=== PATIENT | male | born 1950 | race Caucasian/White ===

== ENCOUNTER 2016-12-16 16:15 | Emergency (ER) | payer OTHER ==
[2016-12-16 16:24] VITALS: TEMP 97.7; O2SAT 95
--- NOTE | 2016-12-16 17:03 | EDPHY ---
H & P Stated Complaint: Back spasm last night;"legs not working right" Time Seen by Provider: 12/16/16 16:33 HPI/ROS: CHIEF COMPLAINT: back pain, leg weakness HISTORY OF PRESENT ILLNESS: 66-year-old male presents to the emergency department complaining of back pain and bilateral leg weakness. Patient reports he has been traveling a lot lately and has had knots in his back. Yesterday he got a deep tissue massage switched through his back into a big spasm. Patient went to bed last night, woke up this morning got out of his bed and his legs collapsed. Patient reports he fell to the ground. This has never happened before. He denies any injury from this fall, no head strike, no neck pain. Patient reports he took 10 mg of prednisone that he has to use as needed. He has rheumatoid arthritis. His pain has improved significantly and his weakness in his legs has slowly improved. He still feels like his legs are disconnected from his body when he walks. He reports it has been more difficult to urinate today. No loss of control of bowel or bladder, no saddle anesthesias, no fevers. Patient reports a history of intermittent low back pain over the years, he states he has had a couple steroid injections. REVIEW OF SYSTEMS: A comprehensive 10 point review of systems is otherwise negative aside from elements mentioned in the history of present illness. Source: Patient Exam Limitations: No limitations - Personal History Current Tetanus Diphtheria and Acellular Pertussis (TDAP): Yes Tetanus Vaccine Date: 03/08 - Medical/Surgical History Hx Asthma: Yes Other PMH: RA. degenerative arhtritis - Social History Smoking Status: Never smoked - Physical Exam Exam: Physical Exam Gen: Alert and Oriented, NAD HEENT: PERRL, moist mucous membranes NECK: no meningismus CV: regular rate and regular rhythm PULM: CTAB, no wheezes ABDOMEN: soft, non tender to palpation, BS present BACK: Mild bilateral lumbar and thoracic paraspinal tenderness to palpation, no erythema or obvious deformity, no midline tenderness NEURO: Neurologically grossly intact EXTREMITIES: normal appearing, right total knee arthroscopy scar well healed, full range of motion of bilateral lower legs, 5/5 strength, sensation intact to light touch, 2/4 deep tendon reflexes patellar and Achilles, negative straight leg raise bilaterally SKIN: no rash or break in skin on exposed skin PSYCH: answers questions appropriately. Constitutional: Initial Vital Signs Temperature (C) 36.5 C 12/16/16 16:21 Heart Rate 88 12/16/16 16:21 Respiratory Rate 18 12/16/16 16:21 Blood Pressure 143/84 H 12/16/16 16:21 O2 Sat (%) 95 12/16/16 16:21 O2 Delivery Mode Room Air Allergies/Adverse Reactions: No Known Allergies Allergy (Verified 12/16/16 16:19) Home Medications: Medication Instructions Recorded Aspirin [Aspirin 325 mg (*)] 325 mg PO DAILY 12/16/16 Diclofenac Sodium [Voltaren 50 MG 50 mg PO BID 12/16/16 (*)] Methocarbamol [Robaxin-750] 750 - 1,500 mg PO QID PRN #20 12/16/16 tablet Methotrexate Sodium [Rheumatrex] 2.5 mg PO 12/16/16 Simvastatin [Zocor] 20 mg PO 12/16/16 Valsartan [Diovan (*)] 40 mg PO 12/16/16 Medical Decision Making - Diagnostics Imaging Results: Imaging Impressions Lumbar Spine MRI 12/16/16 16:58 Impression: 1. Multilevel degenerative disk disease with spinal and neural foraminal stenoses as detailed above most prominent at L4-L5. Findings discussed with Merle Olguin NP at 19:43 hour, 12/16/2016. Thoracic Spine MRI 12/16/16 16:58 Impression: 1. Mild scoliosis. 2. Minimal disk bulges without consequences from T7-T8 through T9-T10. 3. Moderate disk bulge at T11-T12 with associated moderate spinal stenosis 4. 12 rib-bearing segments noted along with 6 lumbar spine vertebral body segments ED Course/Re-evaluation: MRI of T and L-spine obtained to rule out cauda equina syndrome. Patient has degenerative disc disease and multiple mild to moderate bulging discs. Patient will be discharged with a prescription for Robaxin. He is given Neurosurgery for follow-up. He is given strict return precautions for any neurovascular compromise. Differential Diagnosis: Diagnosis considered but not limited to cauda equina syndrome, fracture, spinal abscess, muscle spasm - Data Points Medications Given: Discontinued Medications Acetaminophen (Tylenol) 1,000 mg PO EDNOW ONE Stop: 12/16/16 19:17 Last Admin: 12/16/16 19:20 Dose: 1,000 mg Methocarbamol (Robaxin) 750 mg PO EDNOW ONE Stop: 12/16/16 19:56 Last Admin: 12/16/16 20:04 Dose: 750 mg Departure - Departure Disposition: Home, Routine, Self-Care Clinical Impression: Lumbosacral radiculopathy due to degenerative joint disease of spine Condition: Good Instructions: Degenerative Disc Disease (ED) Additional Instructions: Ice or heat whichever feels better, take 600 mg of ibuprofen every 8 hours with food for 3-5 days, take Tylenol as needed on top of this 650 mg every 8 hours. Follow up with the neurosurgeon at 1st available appointment for continued treatment. Return to the emergency department for any loss of control of your bowel or bladder, numbness to your groin, fevers, any new symptoms or concerns. Referrals: Safia Khalil MD [Medical Doctor] - As per Instructions (Neurosurgeon on-call) Prescriptions: Methocarbamol [Robaxin-750] 750 - 1,500 mg PO QID PRN #20 tablet PRN Reason: Spasms
[2016-12-16] MEDS ORDERED: ACETAMINOPHEN 500 MG TAB PO ONE (19:16)
[2016-12-16 19:43] VITALS: BP 148/86; PULSE 68; RESP 16
[2016-12-16] MEDS ORDERED: METHOCARBAMOL 750 MG TAB PO ONE (19:55)
== END 2016-12-16 20:04 | disposition home or self-care (01) ==
DX: M47.27 Other spondylosis with radiculopathy, lumbosacral region (principal); J45.909 Unspecified asthma, uncomplicated; Z79.82 Long term (current) use of aspirin

== ENCOUNTER 2016-12-17 18:01 | Inpatient (IN) | payer OTHER ==
--- NOTE | 2016-12-17 18:37 | EDPHY ---
H & P Stated Complaint: seen yesterday for same/mri's obtained/increasing numbness today HPI/ROS: HPI CHIEF COMPLAINT: Back pain, leg weakness, seen here yesterday HISTORY OF PRESENT ILLNESS: This patient very pleasant 58-year-old male, significant past medical history of rheumatoid arthritis and degenerative joint disease, initially presented yesterday for back pain and leg weakness had a lumbar and thoracic spine MRI that did not show any significant acute cauda equina but did show multilayered degenerative disease as well as spinal stenosis. Went to his primary care doctor's office today with worsening leg weakness and some abdominal numbness. Referred back here to the emergency room for further evaluation. I did spent extensive time with him and his at bedside. Patient complains of inability control his right leg. With weakness. Tells me his leg is weak any drags it. He also appears to have a foot drop. Additionally this patient has noticed over the last 24 hours some numbness to his right abdomen. It is at approximately T12 down. It does not cross midline at the umbilicus. It does wrap around to his back paravertebral Randy. But again does not cross midline. No rash. This was new today. Patient tells me this all started a few days ago after he had a deep tissue massage. Patient initially had some muscle spasms and back pain. He denies headache. Denies upper extremity weakness. Denies visual disturbance. Nausea vomiting or chest pain. Past Medical History: Rheumatoid arthritis Past Surgical History: Right knee surgery, no other recent surgery Social History: Lives locally, denies drugs alcohol tobacco products, his son is a 3rd year neurology resident at the [facility]. I did speak extensively with him over the phone. Family History: Noncontributory ROS REVIEW OF SYSTEMS: A comprehensive 10 point review of systems is otherwise negative aside from elements mentioned in the history of present illness. Exam Constitutional appears well nontoxic, triage nursing summary reviewed, vital signs reviewed, awake/alert. Eyes normal conjunctivae and sclera, EOMI, PERRLA. HENT normal inspection, atraumatic, moist mucus membranes, no epistaxis, neck supple/ no meningismus, no raccoon eyes. Respiratory clear to auscultation bilaterally, normal breath sounds, no respiratory distress, no wheezing. Cardiovascular rate normal, regular rhythm, no murmur, no edema, distal pulses normal. Gastrointestinal soft, non-tender, no rebound, no guarding, normal bowel sounds, no distension, no pulsatile mass. Genitourinary no CVA tenderness. Musculoskeletal no midline vertebral tenderness, full range of motion, no calf swelling, no tenderness of extremities, no meningismus, good pulses, neurovascularly intact. Skin pink, warm, & dry, no rash, skin atraumatic. Neurologic on exam this patient has 2+/3 strength of his right lower extremity. Able to lift a 2 inches off the bed but then it falls. I can easily break his strength with minimal resistance. He also is noted to be weak with dorsiflexion of his right foot. Better with plantar flexion. Left leg is unremarkable great strength. His right leg is warm, good pulse. Sensation intact. Additionally abnormal neurological finding the right side of his abdomen from approximately T11-T12 region down to his groin region and does not cross midline to his umbilicus and goes all the way around to his back patient tells me this is numb. He has sensory difference compared to left side. Otherwise unremarkable neurological exam specifically no other focal weakness. Cranial nerves intact. Good upper extremity strength. No facial asymmetry. No headache. Psychiatric normal mood/affect. Heme/Lymph/Immune no lymphadenopathy. Differential Diagnosis: Includes but is not limited to in a particular order lumbar radiculopathy, peripheral nerve abnormality, transverse myelitis, atypical Guillain-[place], electrolyte disturbance, MS. Medical Decision Making: Plan for this patient MRI with and without contrast of the thoracic and lumbar spine. Check blood work. Consult Neurology. Re-evaluation: 1921: Spoke with Dr. Blaze kerns, Recommends MRI Brain/w/wo.. MRI C Spine, W/wo. Recommends admission. 1943: I spoke with Dr. Tej Tsai nerve surgery he will be glad to see and evaluate the patient. He does agree with MRI brain, cervical spine T-spine and L-spine with without contrast to make sure there is no other lesions. I did go over the patient's exam findings. I did go over his MRI results that he had yesterday. I do feel like his a clinical picture is consistent with severe spinal stenosis on the right side causing his foot drop and leg weakness. Unclear etiology of his numbness of his right abdominal wall. MRI of the brain cervical spine and thoracic spine with and without contrast]. The results of the study are no significant intracranial MRI results, no significant cervical spine except spinal stenosis, however the thoracic spine there is cord edema at the T11 region, not hyperintense, no spinal cord infarct , appears to be chronic. Please see full dictation report from Dr. Hoffman. I discussed the results of this study with the radiologist Dr. Hoffman [id number]: I did discuss this patient's MRI results of his head, cervical spine, thoracic spine with and without contrast with him. I also try to touch base with his son who is a 30 year neuro logical resident at [facility]. Unable to get hold of his son at this time. Patient does agree for plan for admission reason for admission is right leg weakness and pain control. Also reason for neurosurgery and neurology to evaluate him. I do feel that his symptoms are consistent with severe right sided lumbar spinal stenosis causing his right leg weakness and footdrop. He agrees for admission. Dr. Tej Tsai with neurosurgery has already been consult. Dr. Blaze Kerns with Neurology is already been consult. Source: Patient - Personal History Current Tetanus/Diphtheria Vaccine: Yes Tetanus Vaccine Date: 03/08 - Medical/Surgical History Hx Asthma: Yes Hx Chronic Respiratory Disease: No Hx Diabetes: No Hx Cardiac Disease: No Hx Renal Disease: No Hx Cirrhosis: No Hx Alcoholism: No Hx HIV/AIDS: No Hx Splenectomy or Spleen Trauma: No Other PMH: RA. degenerative arhtritis - Social History Smoking Status: Never smoked Constitutional: Initial Vital Signs Temperature (C) 36.9 C 12/17/16 18:06 Heart Rate 85 12/17/16 18:06 Respiratory Rate 20 12/17/16 18:06 Blood Pressure 139/99 H 12/17/16 18:06 O2 Sat (%) 95 12/17/16 18:06 O2 Delivery Mode Room Air Allergies/Adverse Reactions: No Known Allergies Allergy (Verified 12/17/16 18:05) Home Medications: Medication Instructions Recorded Aspirin [Aspirin 325 mg (*)] 325 mg PO DAILY PRN 12/18/16 Diclofenac Sodium [Voltaren-XR] 100 mg PO DAILY 12/18/16 Fluticasone/Salmeterol [Advair 1 puffs PO BID 12/18/16 250-50 Diskus] Hydroxychloroquine Sulfate 200 mg PO DAILY 12/18/16 [Plaquenil 200 mg (*)] Methocarbamol [Robaxin 750 mg (*)] 750 - 1,500 mg PO DAILY PRN 12/18/16 Methotrexate Sodium [Rheumatrex] 2.5 mg PO Q10D 12/18/16 Multivitamins [Multivitamin (*)] 1 each PO DAILY 12/18/16 Simvastatin [Zocor] 20 mg PO HS 12/18/16 Valsartan [Diovan (*)] 80 mg PO HS 12/18/16 Zolpidem Tartrate [Ambien 5MG (*)] 5 mg PO HS PRN 12/18/16 predniSONE [predniSONE] 2.5 mg PO DAILY 12/18/16 Medical Decision Making - Data Points Laboratory Results: Laboratory Results 12/17/16 19:25 12/17/16 19:25 Medications Given: Discontinued Medications Acetaminophen (Tylenol) 1,000 mg PO EDNOW ONE Stop: 12/17/16 20:31 Last Admin: 12/17/16 20:30 Dose: 1,000 mg Hydrocodone Bitart/Acetaminophen (Mills 5/325) 1 - 2 tab PO Q4HRS PRN PRN Reason: Pain, Moderate Able to Take PO Stop: 12/27/16 23:25 Last Admin: 12/19/16 08:46 Dose: 1 tab Cyclobenzaprine HCl (Flexeril) 10 mg PO EDNOW ONE Stop: 12/17/16 22:54 Last Admin: 12/17/16 22:58 Dose: 10 mg Cyclobenzaprine HCl (Flexeril) 10 mg PO TID RUDY Stop: 06/16/17 15:59 Last Admin: 12/19/16 07:18 Dose: 10 mg Cyclobenzaprine HCl (Flexeril) 10 mg PO TID PRN PRN Reason: Pain, Moderate Stop: 06/18/17 15:59 Last Admin: 12/22/16 02:25 Dose: 10 mg Diazepam (Valium) 5 mg PO Q6HRS PRN PRN Reason: Anxiety, Able to Take PO Stop: 06/17/17 15:21 Last Admin: 12/20/16 05:30 Dose: 5 mg Diazepam (Valium) 5 mg PO ONCE ONE Stop: 12/19/16 18:16 Last Admin: 12/19/16 18:20 Dose: 5 mg Diazepam (Valium Injection) 5 mg IVP Q6HRS PRN PRN Reason: Anxiety, Unable to Take PO Stop: 06/18/17 10:58 Last Admin: 12/21/16 04:42 Dose: 5 mg Hydromorphone HCl (Dilaudid) 0.2 - 0.4 mg IVP Q2HRS PRN PRN Reason: Pain, Severe Unable to Take PO Stop: 12/29/16 15:21 Last Admin: 12/20/16 08:18 Dose: 0.4 mg Hydromorphone HCl (Dilaudid [employer]it [employer]ist) 6 mg IV PRN PRN; Protocol PRN Reason: Pain, Severe Unable To Take Po Stop: 12/30/16 08:44 Last Admin: 12/21/16 22:29 Dose: 6 mg Sodium Chloride (Ns) 1,000 mls @ 0 mls/hr IV ONCE ONE; Wide Open PRN Reason: Protocol Stop: 12/17/16 19:05 Last Admin: 12/17/16 19:35 Dose: 1,000 mls Cefazolin Sodium/Dextrose (Ancef 2 Gm (Premix)) 100 mls @ 200 mls/hr IV ONCALL ONE PRN Reason: Protocol Stop: 12/19/16 10:29 Last Admin: 12/19/16 15:47 Dose: Not Given Cefazolin Sodium/Dextrose (Ancef 2 Gm (Premix)) 100 mls @ 200 mls/hr IV Q8H RUDY PRN Reason: Protocol Stop: 12/20/16 03:29 Last Admin: 12/20/16 03:15 Dose: 100 mls Ibuprofen (Motrin) 800 mg PO EDNOW ONE Stop: 12/17/16 22:53 Last Admin: 12/17/16 22:58 Dose: 800 mg Magnesium Citrate (Magnesium Citrate) 300 ml PO ONCE ONE Stop: 12/23/16 11:01 Last Admin: 12/23/16 16:03 Dose: Not Given Methocarbamol (Robaxin) 750 - 1,500 mg PO DAILY PRN PRN Reason: Spasms Stop: 06/16/17 13:05 Last Admin: 12/20/16 08:23 Dose: 750 mg Methocarbamol (Robaxin) 750 mg PO TID RUDY Stop: 06/19/17 09:39 Last Admin: 12/22/16 09:16 Dose: 750 mg Midazolam HCl (Versed) 2 mg IVP ONCALL ONE Stop: 12/19/16 09:27 Last Admin: 12/19/16 15:48 Dose: Not Given Miscellaneous Medication (Diclofenac Sodium [Voltaren-Xr]) 0 mg PO DAILY [facility] Stop: 06/17/17 08:59 Last Admin: 12/21/16 10:20 Dose: Not Given Fluticasone/Salmeterol (Advair) 1 puffs IH BID RUDY Stop: 06/15/17 23:29 Last Admin: 12/18/16 09:40 Dose: 1 puffs Departure - Departure Disposition: [facility] Inpatient Acute Clinical Impression: Leg weakness Qualifiers: Laterality: right Qualified Code(s): R29.898 - Other symptoms and signs involving the musculoskeletal system Condition: Fair
[2016-12-17] MEDS ORDERED: NS 1,000 ML IV ONE (19:04)
[2016-12-17 19:37] LABS: % IMMATURE GRANULYOCYTES 0.4 % (0.0-1.1); ABSOLUTE IMMATURE GRANULOCYTES 0.03 10^3/uL (0.00-0.10); ADD DIFF? NO; ADD MORPH? NO; ADD SCAN? NO; ATYPICAL LYMPHOCYTE FLAG 0 (0-99); FRAGMENT RBC FLAG 0 (0-99); HEMOGLOBIN 15.7 g/dL (13.7-17.5); LEFT SHIFT FLG 0 (0-99); LIPEMIA HEMOLYSIS FLAG 90 (0-99); MEAN CELL HEMOGLOBIN 32.2 pg (27.9-34.1); MEAN CELL HEMOGLOBIN CONCENTR. 34.9 g/dL (32.4-36.7); MEAN CELL VOLUME 92.4 fL (81.5-99.8); MEAN PLATELET VOLUME 9.8 fL (8.7-11.7); PLATELET CLUMPS FLAG 10 (0-99); PLATELET COUNT 218 10^3/uL (150-400); RED BLOOD CELL COUNT 4.87 10^6/uL (4.40-6.38)
[2016-12-17 19:46] LABS: INR 1.09 (0.83-1.16)
[2016-12-17 19:47] LABS: APTT 26.3 SEC (23.0-38.0)
[2016-12-17 19:53] LABS: ALANINE AMINOTRANSFERASE 38 IU/L (21-72); ALBUMIN 4.1 g/dL (3.5-5.0); ALKALINE PHOSPHATASE 38 IU/L (38-126); ANION GAP 12 mEq/L (8-16); ASPARTATE AMINOTRANSFERASE 28 IU/L (17-59); BILIRUBIN,TOTAL 0.8 mg/dL (0.1-1.4); BILIRUBIN-CONJUGATED 0.5 mg/dL (0.0-0.5); BILIRUBIN-UNCONJUGATED 0.3 mg/dL (0.0-1.1); CALCIUM 9.5 mg/dL (8.5-10.4); CARBON DIOXIDE 20 mEq/l (22-31); CHLORIDE 104 mEq/L (97-110); CREATININE 0.9 mg/dL (0.7-1.3); GLOMERULAR FILTRATION RATE > 60; GLUCOSE 145 mg/dL (70-100); POTASSIUM 4.2 mEq/L (3.5-5.2); SODIUM 136 mEq/L (134-144); TOTAL PROTEIN 6.8 g/dL (6.3-8.2)
[2016-12-17] MEDS ORDERED: ACETAMINOPHEN 500 MG TAB ONE (20:01)
[2016-12-17] MEDS ORDERED: GADOBUTROL 10 ML VIAL IVP ONE (20:25)
[2016-12-17] MEDS ORDERED: ACETAMINOPHEN 500 MG TAB PO ONE (20:30)
[2016-12-17] MEDS ORDERED: IBUPROFEN 200 MG TAB PO ONE (22:52)
[2016-12-17] MEDS ORDERED: CYCLOBENZAPRINE 10 MG TAB PO ONE (22:53)
[2016-12-17] MEDS ORDERED: IBUPROFEN 600 MG TAB PO ONE (22:56)
[2016-12-17] MEDS ORDERED: ONDANSETRON DISINTEGRATING 4 MG TAB PO PRN (23:26)
[2016-12-17] MEDS ORDERED: ONDANSETRON 4 MG/2 ML VIAL IVP PRN (23:26)
[2016-12-17] MEDS ORDERED: LACTULOSE 20 GM/30 ML UDCUP PO PRN (23:31)
[2016-12-17] MEDS ORDERED: BISACODYL 10 MG SUPP PR PRN (23:31)
[2016-12-17] MEDS ORDERED: MAGNESIUM HYDROXIDE 30 ML UDCUP PO PRN (23:31)
[2016-12-17] MEDS ORDERED: POLYETHYLENE GLYCOL 3350 17 GM PKT PO PRN (23:31)
[2016-12-18] MEDS ORDERED: DICYCLOMINE 10 MG CAP ONE (00:06)
--- NOTE | 2016-12-18 00:35 | GHP ---
[f rep st] HISTORY AND PHYSICAL DATE OF ADMISSION: 12/17/2016 CHIEF COMPLAINT: Right lower extremity weakness. HISTORY OF PRESENT ILLNESS: This is a 66-year-old male with a history of rheumatoid arthritis well controlled on low-dose Plaquenil and methotrexate, who presented yesterday to the emergency departme with complaints of asymmetric right lower extremity weakness. Patient describes being at a [employer] [facility] approximately 36 hours before which he describes as extremely deep tissue work on his back. Afte r he returned home from that, patient was having severe pain of his back where the massage work was performed. When he woke the next morning, he noted dyssymmetry in his strength with his right lower extremity being more weak. Presented to his outpatient provider, who recommended he come to the em ergency department. Imaging was performed at that time that confirmed the presence of lumbar stenos is. Patient was discharged to follow with outpatient Neurosurgery. Patient called for neurosurgica l followup. The first obtainable appointment was approximately 45 days from now. Patient then awok e with new sensations of worsening right lower extremity weakness, as well as some sensation of dimi nished sensation over his right flank. Again saw his PCP, who sent him to the emergency department. In the ED, the patient is describing transient left lower extremity weakness that is totally resol elly. He has weakness, as well as sensory deficits of the right lower extremity. Again is describin g some sensory deficits over his right flank. Is still having back pain associated with the massage performed 48 hours ago. Denies any chest pain. Does report some shortness of breath with the pain he is having in his back. Denies any headache, any vision changes, any dysphagia. Denies any rece nt fevers, chills, cough, diarrhea. Patient has not stooled in the last 48 hours. Denies any hemat uria. PAST MEDICAL HISTORY: 1. Asthma, well controlled on inhaled Advair. 2. Hypertension, well controlled on low-dose antihypertensives. 3. Rheumatoid arthritis, well controlled on low-dose Plaquenil and methotrexate. SOCIAL HISTORY: Negative for tobacco. Drinks 3 beers several nights a week. Denies any marijuana or illicit drugs. FAMILY HISTORY: Psoriatic arthritis in his brother. REVIEW OF SYSTEMS: A 10-point review of systems is negative with the exception of that reported in the HPI. PHYSICAL EXAMINATION: VITAL SIGNS: Blood pressure 139/99, heart rate 85, respiratory rate 20, 95% on room air, 36.9. GENERAL: This is a very healthy-appearing, middle-aged male, in no acute distre ss. HEENT: Notable for moist mucous membranes. Eye exam is negative for any icterus. CARDIAC: P atient is regular rate and rhythm. PULMONARY: Has good respiratory effort, is clear to auscultatio n bilaterally. GASTROINTESTINAL: Positive bowel sounds. ABDOMEN: Soft and nontender in all 4 jd drants. MUSCULOSKELETAL: Negative for any lower extremity edema. SKIN: Negative for any rashes. NEUROLOGIC: Patient is alert and oriented x3. The patient has diminished strength of the right lo wer extremity, as well as sensation. He is additionally describing a sensory dyssymmetry on his jimenez nk with diminished sensation on the right side. Gait was not examined. PSYCHIATRIC: He is pleasan t and cooperative on interview and examination. DATA: White count 8.1, hematocrit 45, platelets 218. INR is 1.09. Creatinine 0.8. MRI of the lumb ar spine from 12/16/2016, which I personally reviewed and interpreted, shows multilevel stenosis in the lumbar spine with moderate to severe seen at L4-L5. On 12/17/2016, patient had an MRI of the br ain that showed no acute infarctions or findings. ASSESSMENT AND PLAN: This is a 66-year-old male with right lower extremity weakness. 1. Acute right lower extremity weakness. Patient is unable to safely ambulate, which is an acute f inding for him. Suspect this is related to the severe lumbar stenosis visualized on MRI. Will ask Neurosurgery to consult inpatient for recommendations. Will additionally ask PT/OT to evaluate the patient for ambulatory assist and recommendations. Will continue patient's muscle relaxant medicati ons that he is using at home. 2. Right flank numbness. I have a lower suspicion for this being an acute neurologic episode based on the extensive MRI imaging. Neurology has been consulted from the emergency department and will formally consult in the morning. Dr. Kerns discussed the case with Dr. Hameed. Will not initiate f urther neurologic workup at this time but instead hear from both Neurosurgery and Neurology tomorrow . 3. Asthma. Will continue the patient's Advair b.i.d. 4. Muscle spasm and back pain. Patient describes this initiating after his deep tissue work. He r eports this is responsive to muscle relaxants. Will continue these once medications are reconciled. He has been provided with a 10 mg dose of Flexeril in the emergency department, which should be holloway fficient overnight. 5. Prophylaxis. As the patient is not ambulating normally with Lovenox. 6. Diet regular. DISPOSITION: Hopefully less than 2 midnights if the appropriate consultants can see the patient fidel orrow, and there is no need for emergent surgical intervention or additional neurologic evaluation. Discussed the case with the emergency room physician. Patient will be triaged to the medical-surgi [facility] floor for monitoring and consultation. /[id number]/MODL
[2016-12-18] MEDS: FLUTICASONE/SALMETER 250/50MCG DISKUS IH SCH ×2 (02:00→09:40)
[2016-12-18] MEDS: SENNOSIDES/DOCUSATE SODIUM TAB PO SCH ×2 (09:40→20:12)
[2016-12-18] MEDS: ENOXAPARIN 40 MG/0.4 ML SYR SC SCH (09:41)
[2016-12-18] MEDS ORDERED: ZOLPIDEM TARTRATE 5 MG TAB PO PRN (13:06)
[2016-12-18] MEDS ORDERED: METHOTREXATE 2.5 MG TAB PO SCH (13:15)
[2016-12-18] MEDS: ACETAMINOPHEN 325 MG TAB PO PRN (14:02)
[2016-12-18] MEDS: METHOCARBAMOL 750 MG TAB PO PRN (14:02)
--- NOTE | 2016-12-18 14:22 | HOSPPROG ---
Hospitalist Progress Note Assessment/Plan: 66y male with c/o leg weakness and abd discomfort. First encounter, chart reviewed, D/W Dr Lepe. #Acute RLE weakness severe lumbar stenosis neurosurgery consult #Acute right flank pain unclear etiol await neurology consult #Hx of RA cont home meds if surgery needed consider stress dose of steroids #Hx asthma stable #Back spasm cont flexeril #Dispo unclear, pending consultations and recs Subjective: Wants to go home. Still having weakness and discomfort. Objective: Vital Signs Temp Pulse Resp BP Pulse Ox 36.7 C 93 16 145/79 H 95 12/18/16 08:00 12/18/16 08:00 12/18/16 08:00 12/18/16 08:00 12/18/16 08:00 12/17/16 12/18/16 12/19/16 05:59 05:59 05:59 Intake Total 1300 Output Total 0 Balance 1300 PT 14.0 SEC (12.0-15.0) 12/17/16 19:25 INR 1.09 (0.83-1.16) 12/17/16 19:25 - Physical Exam Constitutional: no apparent distress, appears nourished, not in pain Eyes: PERRL, anicteric sclera, EOMI Ears, Nose, Mouth, Throat: moist mucous membranes, hearing normal, ears appear normal Cardiovascular: No JVD, No tachycardia, No edema Respiratory: no respiratory distress, no rales or rhonchi, reduced air movement Gastrointestinal: normoactive bowel sounds, soft, non-tender abdomen, No tenderness, No ascites Skin: warm, normal color, No erythema Musculoskeletal: normal joint ROM, no joint effusions, muscular tenderness Neurologic: AAOx3, weakness Psychiatric: not anxious, not encephalopathic, thought process linear ICD10 Worksheet Patient Problems: Problems Problem Status Onset Leg weakness Acute
--- NOTE | 2016-12-18 15:32 | GCON ---
[f rep st] CONSULTATION NEUROSURGICAL CONSULTATION DATE OF CONSULTATION: 12/18/2016 CHIEF COMPLAINT: Right foot drop, right leg numbness, right leg does not work, right abdominal numbness. HISTORY OF PRESENT ILLNESS: The patient is a 66-year-old male who was receiving a deep tissue massage this past Wednesday night. He has received these deep tissue massages for 15 years, but unfortunately since the one on Wednesday he has been experiencing severe lower back spasms. He feels these spasms increased, radiated across his whole entire lower back region and then he began to experiece weakness in his right leg and foot. He has tried Flexeril and ice which helped him to sleep that first night, but unfortunately the next day he was unable to get out of bed and did not feel his legs were working properly. He went to the emergency room and underwent some imaging at that time and was sent home. He came back to the emergency room yesterday and underwent more imaging of his spine. He has tried Robaxin and prednisone without beneficial relief of his symptoms. PAST MEDICAL HISTORY: The patient has hypertension, hyperlipidemia, and asthma. SURGICAL HISTORY: Includes a right knee replacement, bladder biopsy which was negative, and a bowel obstruction repair. FAMILY HISTORY: Father had cardiovascular disease. MEDICATIONS: Include Diovan, simvastatin, Advair, Proventil, Voltaren, Plaquenil and Excedrin with his last dose being yesterday of the Excedrin. ALLERGIES: None. REVIEW OF SYSTEMS: See HPI. PHYSICAL EXAMINATION: VITAL SIGNS: Blood pressure is 145/79, heart rate is 93 , respiratory rate 16, oxygen saturation is 95% on room air, temperature is 36.7. STRENGTH IN THE LOWER EXTREMITIES: Right quadriceps is 3/5, right iliopsoas is 3/5. Left quadriceps is 5/5, left iliopsoas is 5/5. Right tibialis anterior is 3/5. Left tibialis anterior is 5/5. Right extensor hallucis longus is 4/5. Left extensor hallucis longus is 5/5. Right plantar flexion is 5- out of 5. Left plantar flexion is 5/5. The patient has decreased proprioception on the right with decreased light touch on the right lower extremity and decreased motor on the right lower extremity. Left lower extremity has normal motor functions and is intact to light touch sensation. Left lower extremity the patient is unable to differentiated the difference between hot and cold, and left lower extremity the patient does not have any sensation to sharp pinprick. BACK: The patient has decreased thoracic sensation bilaterally until about the T8-9 level. NEUROLOGIC: The patient is alert and oriented to person, time and place. Normal gait. Bilateral patellar reflexes are 2+. Bilateral ankle reflexes are 2+. DIAGNOSTICS: MRI of the thoracic spine with and without contrast that was performed on December 17, 2016, demonstrated a T11-12 cord compression due to degenerative spinal stenosis with either cord edema or gliosis slightly below the stenosis, mild-moderate stenosis. MRI of the brain with and without contrast performed on December 17, 2016, demonstrated a normal MRI of the brain with no evidence of mass or infarction. MRI of the cervical spine with and without contrast performed on December 17, 2016, demonstrated multilevel degenerative changes with the worst central canal stenosis at C3-4 where there is also a spondylolisthesis. Radiologist interprets to have progressed significantly since 2008. MRI of the lumbar spine that was performed on December 16, 2016, demonstrates multilevel degenerative disk disease, the most significant stenosis noted on the left at L4-5 where he has severe left lateral recess stenosis and central canal stenosis. He also has stenosis at L1-2, L2-3, and L3-4. ASSESSMENT AND PLAN: The patient is a 66-year-old male who presented with right lower extremity weakness and right abdominal and flank numbness. The patient's MRIs of the cervical, thoracic and lumbar spine were reviewed. He is shown to have mild to moderate stenosis with some cord compression at T11 and T12, has that severe left lateral recess stenosis and central stenosis at L4-5 as well as some stenosis at L1-2, L2-3, and L3-4. 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 Given that his thoracic stenosis is most prominent at T11-12 and his sensory deficits extend up to around the T8 level, it is unclear if surgery would truly help his symptoms. The patient feels he has gotten slightly better since his admission. Dr. Khalil has spoke to Dr. Kerns with Neurology regarding this patient's condition and his physical exam findings. We will wait to hear the neurologist's opinion before we decide to proceed with any surgery. If surgery is to be suggested based on their opinion, it will likely be a decompression and laminectomy at T11-12, but again, we will wait to hear from Neurology. Dr Khalil and myself saw patient at bedside. /[id number]/MODL MTDD
--- NOTE | 2016-12-18 16:27 | NEUROPROG ---
Assessment: [id number] CC: Dr. Tara Barnett consulted neurology for right lower extremity weakness. Results placed in the EMR for her review. HPI: This 66M patient was initially seen 12/18/16. He reported a massage 2-3 days ago and after that note right leg weakness and severe back pain. He presented to [facility] ER and had a T/L spinal MRI which showed some spinal stenosis and neuroforaminal narrowing as the suspected cause (T11-12 spinal stenosis with cord signal change and L4/5 spinal stenosis with R>L NF narrowing). He was given an outpatient referral to neurosurgery which was in 45 days. Over the next 1-2 days he developed right flank sensory changes and the right leg weakness persisted so he returned to the [facility] ER. A brain/cervical MRI were obtained that showed degenerative cervical disease but no brain or cervical cord significant issues. A repeat thoracic MRI showed significant thoracic spinal stenosis at T11/12 with cord signal change that seemed to be the likely cause of his symptoms. Pt was admitted and neurology was consulted. PMHx: RA on plaquenil and methotrexate, HTN, asthma SHx: no tobacco FHx: psoriatic arthritis ROS: Pt denied acute fever, total vision loss, active severe chest pain, respiratory failure, total body severe rash, total bowel/bladder incontinence, psychosis, active seizures, or active bleeding O: VS bp 145/79 RR 16 P93 Satting 95% on RA Temp 36.7C General: Alert Eyes: Fundoscopic exam not able to visualize optic disks CV: Heart RRR, no murmur, no carotid bruit Lungs: Clear to auscultation bilaterally, no rhonchi or rales Neuro: - Mental: . Oriented x person/place/date . concentration appears normal . speech fluency/comprehension normal . memory appears normal . fund of knowledge appear intact - Cranial Nerves: . II: PERRL, VFFTC . III/IV/: EOMI, no nystagmus, normal smooth pursuits, no Ptosis . V: facial sensation intact to LT . VII: face symmetric to eye closure and smile . VIII: hearing intact to conversation . IX/X: uvula raises symmetrically . XI: SCM 5/5 B/L strength . XII: tongue protrudes midline w/nl strength - Motor: . Tone: normal tone in all 4 extremity . Strength: no pronator drift, strength 5/5 throughout except right leg proximally with 4 /5 strength - Reflexes: B/L bic/BR/patella 2/4 - Sensory: arms normal, pt with sensory level on trunk below umbilicus with right side of ayaan-body distal to that with decreased proprioception and left side with decreased temperature (includes both legs) - Coord: [id number] wnl, KERRY wnl, [id number] wnl - Gait: deferred Labs: 12/17/16- CBC wnl, Coags wnl, CMP CO2 20L BUN 28H Gluc 145H Rads: 12/16/16- Lumbar MRI w/o con: Multilevel degenerative disk disease with spinal and neural foraminal stenoses as detailed above most prominent at L4-L5. 12/17/16- Brain MRI w/ and w/o con: normal (I personally visualized the images on 12/18/16) 12/17/16- Cervical MRI w/ and w/o con: 1. Multilevel degenerative change with the worst central canal stenosis at C3-C4 where there is also a spondylolisthesis. This has significantly progressed since 2008. If there is concern for instability, lateral cervical flexion extension views might be helpful. 2. No evidence for cervical cord infarction, edema or mass. 12/17/16- Thoracic MRI w/ and w/o con: Low thoracic cord compression at T11/12 due to degenerative spinal stenosis, with either cord edema or gliosis at and slightly below the stenosis. The lack of enhancement suggests that this does not represent a recent cord infarction. 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 He also had lumbar stenosis at L4/5 and R>L NF narrowing but I do not think that is symptomatic. Case discussed with neurosurgery (Randy Khalil MD) whom planning surgery soon. Plan: -neurosurgery consultation -No further neurologic w/u needed, neurology will sign off but is happy to get re-involved if needed Objective: Vital Signs Temp Pulse Resp BP Pulse Ox 36.7 C 93 16 145/79 H 95 12/18/16 08:00 12/18/16 08:00 12/18/16 08:00 12/18/16 08:00 12/18/16 08:00 12/17/16 12/18/16 12/19/16 05:59 05:59 05:59 Intake Total 1300 Output Total 0 Balance 1300 PT 14.0 SEC (12.0-15.0) 12/17/16 19:25 INR 1.09 (0.83-1.16) 12/17/16 19:25 Allergies/Adverse Reactions: No Known Allergies Allergy (Verified 12/17/16 18:05)
[2016-12-18] MEDS: CYCLOBENZAPRINE 10 MG TAB PO SCH ×2 (16:57→22:17)
[2016-12-18] MEDS: ATORVASTATIN CALCIUM 10 MG TAB PO SCH (20:12)
[2016-12-18] MEDS: VALSARTAN 80 MG TAB PO SCH (20:12)
[2016-12-18] MEDS: FLUTICASONE IH SCH (20:20)
[2016-12-18] MEDS: SALMETER IH SCH (20:20)
[2016-12-18] MEDS ORDERED: NON-FORMULARY NEW DRUG (Simvastatin [Zocor] 20 MG) PO SCH (21:00)
[2016-12-18] MEDS ORDERED: FLUTICASONE/SALMETER 250/50MCG DISKUS IH SCH (21:00)
[2016-12-18] MEDS: HYDROCODONE/APAP 5/325 TAB PO PRN (23:49)
[2016-12-18] MEDS: NS 1,000 ML IV SCH (23:49)
[2016-12-19] MEDS: CYCLOBENZAPRINE 10 MG TAB PO SCH (07:18)
[2016-12-19] MEDS: HYDROCODONE/APAP 5/325 TAB PO PRN ×2 (07:18→08:46)
[2016-12-19] MEDS: METHOCARBAMOL 750 MG TAB PO PRN (08:46)
[2016-12-19] MEDS ORDERED: SURGIFLO MATRIX KIT WITH THROMBIN TP ONE (08:50)
[2016-12-19] MEDS ORDERED: THROMBIN (BOVINE) 5,000 UNIT VIAL TP ONE (08:51)
[2016-12-19] MEDS ORDERED: BUPIVACAINE/EPI 0.25% 30 ML SDV ONE (08:52)
[2016-12-19] MEDS ORDERED: TRIAMCINOLONE ACETONIDE 40 MG/ML VIAL ONE (08:52)
[2016-12-19] MEDS ORDERED: BACITRACIN 50,000 UNITS/10 ML SYR IRR ONE (08:53)
[2016-12-19] MEDS ORDERED: NON-FORMULARY NEW DRUG (Prednisone [Prednisone] 2.5 MG) PO SCH (09:00)
[2016-12-19] MEDS ORDERED: DICLOFENAC SODIUM 100 MG PO SCH (09:00)
[2016-12-19] MEDS ORDERED: MIDAZOLAM 2 MG/2 ML VIAL IVP ONE (09:26)
--- NOTE | 2016-12-19 09:26 | PDANEPAE ---
ANE History of Present Illness 66 yo for lami htn RA RAD ANE Past Medical History - Cardiovascular History Hx Hypertension: Yes Hx Arrhythmias: No Hx Chest Pain: No Hx Coronary Artery / Peripheral Vascular Disease: No Hx CHF / Valvular Disease: No Hx Palpitations: No - Pulmonary History Hx COPD: No Hx Asthma/Reactive Airway Disease: Yes Hx Recent Upper Respiratory Infection: No Hx Oxygen in Use at Home: No - Endocrine History Hx Diabetes: No Hypothyroid: No Hyperthyroid: No - Chronic Pain History Chronic Pain: Yes ANE Review of Systems - Exercise capacity METS (RN): 4 METS ANE Patient History - Allergies Allergies/Adverse Reactions: No Known Allergies Allergy (Verified 12/17/16 18:05) - Home Medications Home medications: home medication list seen and reviewed Home Medications: Aspirin [Aspirin 325 mg (*)] 325 mg PO DAILY PRN 12/18/16 [Last Taken Unknown] Diclofenac Sodium [Voltaren-XR] 100 mg PO DAILY 12/18/16 [Last Taken 12/17/16] Fluticasone/Salmeterol [Advair 250-50 Diskus] 1 puffs PO BID 12/18/16 [Last Taken 12/18/16 1 puff] Hydroxychloroquine Sulfate [Plaquenil 200 mg (*)] 200 mg PO DAILY 12/18/16 [ Last Taken Unknown] Methocarbamol [Robaxin 750 mg (*)] 750 - 1,500 mg PO DAILY PRN 12/18/16 [Last Taken Unknown] Methotrexate Sodium [Rheumatrex] 2.5 mg PO Q10D 12/18/16 [Last Taken 12/15/16] Multivitamins [Multivitamin (*)] 1 each PO DAILY 12/18/16 [Last Taken Unknown] Simvastatin [Zocor] 20 mg PO HS 12/18/16 [Last Taken 12/16/16] Valsartan [Diovan (*)] 80 mg PO HS 12/18/16 [Last Taken 12/16/16] Zolpidem Tartrate [Ambien 5MG (*)] 5 mg PO HS PRN 12/18/16 [Last Taken Unknown] predniSONE [predniSONE] 2.5 mg PO DAILY 12/18/16 [Last Taken Unknown] - NPO status NPO Since - Liquids (Date): 12/19/16 NPO Since - Liquids (Time): 00:00 NPO Since - Solids (Date): 12/18/16 NPO Since - Solids (Time): 19:00 - Smoking Hx Smoking Status: Never smoked ANE Labs/Vital Signs - Labs Result Diagrams: 12/17/16 19:25 12/17/16 19:25 - Vital Signs Blood Pressure: 175/88 Heart Rate: 60 Respiratory Rate: 12 O2 Sat (%): 93 Height: 5 ft 11 in Weight: 81.647 kg ANE Physical Exam - Airway Neck exam: FROM Mallampati Score: Class 2 - Pulmonary Pulmonary: no respiratory distress - Cardiovascular Cardiovascular: regular rate and rhythym - ASA Status ASA Status: III ANE Anesthesia Plan Anesthesia Plan: general endotracheal anesthesia
[2016-12-19] MEDS ORDERED: ceFAZolin 2 GM/DEXTROSE 100 ML IV ONE (10:00)
[2016-12-19] MEDS: ENOXAPARIN 40 MG/0.4 ML SYR SC SCH (10:12)
[2016-12-19] MEDS: DICLOFENAC SODIUM 100 MG PO SCH (10:12)
[2016-12-19] MEDS: HYDROXYCHLOROQUINE SULFATE 200 MG TAB PO SCH (10:13)
[2016-12-19] MEDS: predniSONE 5 MG TAB PO SCH (10:13)
[2016-12-19] MEDS: MULTIVITAMINS 1 EACH TAB PO SCH (10:14)
[2016-12-19] MEDS: SENNOSIDES/DOCUSATE SODIUM TAB PO SCH ×2 (10:14→21:07)
[2016-12-19] MEDS ORDERED: PROPOFOL/EMULSION 500 MG/50 ML BOTTLE IV ONE (10:16)
[2016-12-19] MEDS ORDERED: REMIFENTANIL HCL 1 MG VIAL ONE (10:16)
[2016-12-19] MEDS ORDERED: fentaNYL 100 MCG/2 ML INJ ONE (10:16)
[2016-12-19] MEDS ORDERED: DEXAMETHASONE 4 MG/ML VIAL ONE ×2 (10:17)
[2016-12-19] MEDS ORDERED: ROCURONIUM 50 MG/5 ML VIAL ONE (10:17)
[2016-12-19] MEDS ORDERED: MIDAZOLAM 2 MG/2 ML VIAL ONE (10:26)
[2016-12-19] MEDS: FLUTICASONE IH SCH ×2 (10:58→15:48)
[2016-12-19] MEDS: SALMETER IH SCH ×2 (10:58→15:48)
[2016-12-19] MEDS ORDERED: ALBUMIN 5% 250 ML BOTTLE IV ONE (12:19)
[2016-12-19] MEDS ORDERED: HYDROmorphONE/DILAUDID 2 MG/ML INJ ONE (12:40)
[2016-12-19] MEDS ORDERED: ALBUTEROL 3 ML DEYVIAL IH PRN (12:42)
[2016-12-19] MEDS ORDERED: NALOXONE HCL 0.4 MG/ML INJ IVP PRN (12:42)
[2016-12-19] MEDS ORDERED: HYDROmorphONE/DILAUDID 1 MG/ML SYR IVP PRN (12:42)
[2016-12-19] MEDS ORDERED: ONDANSETRON 4 MG/2 ML VIAL IVP PRN (12:42)
[2016-12-19] MEDS ORDERED: fentaNYL 100 MCG/2 ML INJ IVP PRN (12:42)
--- NOTE | 2016-12-19 13:22 | POSTOPPROG ---
Post Op Note Date of Operation: 12/19/16 Surgeon: Jony Morales Spinning Machine Operator: Jeremy Acuna PAC Anesthesia: GET(General Endotracheal) Pre-op Diagnosis: thoracic spinal stenosis with R leg weakness Post-op Diagnosis: thoracic spinal stenosis with R leg weakness Indication: leg weakness Procedure: T10-11 laminectomy and decompression Inf/Abcess present in the surg proc area at time of surgery?: No Depth: Organ Space EBL: Minimal
[2016-12-19] MEDS ORDERED: MAGNESIUM HYDROXIDE 30 ML UDCUP PO PRN (14:40)
[2016-12-19] MEDS ORDERED: diphenhydrAMINE 25 MG CAP PO PRN (14:40)
[2016-12-19] MEDS ORDERED: BISACODYL 10 MG SUPP PR PRN (14:40)
--- NOTE | 2016-12-19 14:59 | NEUSURGPN ---
Date of Surgery: 12/19/16 Post Op Day: 0 Assessment/Plan: 66M s/t T10-11 laminectomy and decompression for cord compression and left sided weakness advance diet as tolerated optimize pain control, NSAIDs OK PT/OT for right leg weakness, would like to see how pt does with stairs may shower POD#1 lovenox POD#1 straight cath for urinary retention if needed d/w dr. Morales Subjective: family at bedside, no complaints Objective: aaox3 nad MAEx4 improved butcontinue RLE weakness =LT incision cdi - Physician Patient Seen by : [facility] Physical Exam - Vitals, I&O, Labs I and O 12/18/16 12/19/16 12/20/16 05:59 05:59 05:59 Intake Total 1300 1450 1500 Output Total 0 100 Balance 1300 1450 1400 Weight 81.647 kg 81.647 kg Intake: Oral (ml) 300 450 IV Intake (ml) 1500 IV Infused (ml) 1000 1000 Ns 1,000 ml @ 125 mls/hr 1000 IV CONT RUDY Rx#: [id number] Output: Urine (ml) 0 Estimated Blood Loss (ml) 100 Other: Intake Quantity Yes Sufficient Number of Voids Toilet 1 1 Vital Signs Temp Pulse Resp BP Pulse Ox 36.6 C 67 12 155/84 H 93 12/19/16 14:07 12/19/16 14:07 12/19/16 14:07 12/19/16 14:07 12/19/16 14:07 ICD10 Worksheet Patient Problems: Problems Problem Status Onset Leg weakness Acute
--- NOTE | 2016-12-19 15:04 | GOP ---
[f rep st] OPERATIVE REPORT DATE OF OPERATION: 12/19/2016 SURGEON: Jony Morales MD NEWS OPERATIONS MANAGER: Jeremy Acuna PA-C. ANESTHESIA: GETA. PREOPERATIVE DIAGNOSIS: 1. 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 2. Thoracic 10 thoracic 11 spinal stenosis with cord signal change. POSTOPERATIVE DIAGNOSIS: 1. 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 2. Thoracic 10 thoracic 11 spinal stenosis with cord signal change. PROCEDURE PERFORMED: 1. T10-T11 laminectomy for decompression of the spinal cord. 2. Use of neuromonitoring and fluoroscopy less 1 hour physician time. FINDINGS: Well decompressed spinal cord at the end of the operation. The patient has 11 ribs and t herefore the 1st rib-bearing segment was in fact T10-11. SPECIMENS: None removed. ESTIMATED BLOOD LOSS: 150 cc. DESCRIPTION OF PROCEDURE: The patient was brought into the operating room and a sign-in was perform ed. He was induced under general anesthesia and intubated without issues. Appropriate IV access wa s obtained. He was given 2 g of Ancef to prevent infection. SCDs were placed to prevent DVTs. Justina romonitoring electrodes were placed. Baseline signals were obtained. The patient had a poor motor response in his right leg and almost no sensory in his right leg either which was consistent with hi s clinical physical exam. The patient was turned from a supine to prone position on a Alen frame, the head placed in a head rest. All pressure points padded and his back was washed with chlorhexidine shampoo and rubbing alc ohol which was allowed to dry. A midline incision was performed in the mid to lower thoracic region . X-ray was brought into the field for localization. Our 1st localization attempt in the AP plane we counted up to the presumed T10 interspace where based on the rib count and the last rib coming of f T12 which is classic anatomy. When we verified in the lateral plane; however, we realized we were a level too high. I reviewed the patient's imaging once more and realized that he had 11 ribs. Th erefore, we placed our marker at the 11th rib which we knew to be T11 and then placed our marker at the T10 and T11 interspace and made a coral. We then went back to the AP plane, put a marker back at this location and doubly verified that we we re at the correct level. Once localization was completed, the patient's back was sterilized with ch lorhexidine and a surgical sterile field was created using blue towels and Ioban and a surgical drap e. Prior to beginning the procedure all members of Anesthesia, Surgery and nursing performed the necess lia time-out. All checklist vitals were covered and we agreed to proceed. 10 cc of 0.25% Marcaine with 1:200,000 parts epinephrine was injected along the planned incision line which is approximately 4 cm in length. A #10 scalpel was used to incise the skin and dermis and the subcutaneous fat. A retractor was plac ed and Bovie electrocautery was used to split the fascia and dissect the paraspinal musculature off the spinal column at the T10-11 level bilaterally. After dissection was completed, we placed a coral er again and confirmed that we were at the T10-T11 level. Once we knew our level was certain, a Lek sell rongeur was used to remove the spinous processes of T10 and part of T11 and then our laminectom y was completed with a high-speed drill with a match stick bur. Once all the bone had been removed, the ligamentum flavum was present. A plane was dissected betwee n the ligamentum flavum and the dura and then once a plane was safely achieved, Kerrison rongeurs we re used to resect the ligament. When the ligament had been resected in its entirety, we had a very wide decompression essentially the entire width of the spinal cord itself. The patient's incision w as then irrigated with copious antibiotic solution to prevent infection. Hemostasis was obtained an d another round of irrigation was performed. At this point in time, we began our closure and the muscle and fascia layers were closed with 0 pop- off Vicryl suture in an interrupted fashion and the dermis was closed in an inverted, interrupted fa shion with 2-0 pop-off Vicryl sutures. The skin edges were approximated well and a wet and dry spon ge was used to clean the incision. A layer of skin glue was applied and allowed to dry. Once the g lue was dry we placed a sterile dressing and removed the surgical drapes. The patient was returned from the prone to supine position on the stretcher and he was reversed from anesthesia and extubated without difficulty. All counts were correct and all neuromonitoring signals remained stable during the procedure. There were no immediate surgical or anesthetic complications. I accompanied the patient to the [facility] and found him to be in stable neurologic condition. I updated the family regarding the det ails of the procedure including his son over the phone again and they were all grateful for the care I had given the patient. IMPLANTS: None. COMPLICATIONS: None. INDICATIONS FOR PROCEDURE: The patient is a 66-year-old male who began having low thoracic back mak n, spasms and numbness extending from his chest wall and abdomen at the level of approximately T10 d own his right leg and severe weakness of his right leg as well that began 1st as a foot drop and the n extended proximally. He is essentially asymptomatic in his left leg. His neuro imaging showed so me cervical stenosis, but he has no upper extremity complaints. Severe lumbar stenosis but he has n o classic radicular pathology or claudication type symptoms. Moderate stenosis at T10-11 with some cord signal change. After discussion with my partner, Dr. Randy Khalil, and our neurology colleague, Dr. Kerns, and based o n the location of the patient's sensory level of his physical exam, we all felt that the T10-T11 les ion was most likely to be the culprit and surgical decompression was recommended. This was discusse d in extreme detail on multiple occasions with the patient and his family members and his son who is a physician in [place] as well. We all decided that spinal cord decompression would give him the best chance for a good outcome. All questions were answered. Risks and benefits were discussed. In formed consent was signed by the patient. /[id number]/MODL
--- NOTE | 2016-12-19 15:20 | HOSPPROG ---
Hospitalist Progress Note Assessment/Plan: 66y male with c/o leg weakness and abd discomfort. #Acute RLE weakness severe lumbar stenosis #Pain stable #POD #0 lami T10-11 #Acute right flank pain likely related to spinal stenosis follow post op #Hx of RA cont home meds monitor for possible stress dose need #Hx asthma stable #HTN will monitor if becomes hypotensive will give stress dose steroid #Back spasm cont flexeril #Dispo unclear, needs PT/OT eval Subjective: Arousable, postop. No complaints. Objective: Vital Signs Temp Pulse Resp BP Pulse Ox 36.6 C 67 12 155/84 H 93 12/19/16 14:07 12/19/16 14:07 12/19/16 14:07 12/19/16 14:07 12/19/16 14:07 12/18/16 12/19/16 12/20/16 05:59 05:59 05:59 Intake Total 1300 1450 1500 Output Total 0 100 Balance 1300 1450 1400 PT 14.0 SEC (12.0-15.0) 12/17/16 19:25 INR 1.09 (0.83-1.16) 12/17/16 19:25 - Physical Exam Constitutional: no apparent distress, appears nourished, not in pain Eyes: PERRL, anicteric sclera, EOMI Ears, Nose, Mouth, Throat: moist mucous membranes, hearing normal, ears appear normal Cardiovascular: No JVD, No tachycardia, No edema Respiratory: no respiratory distress, no rales or rhonchi, reduced air movement Gastrointestinal: No tenderness, No ascites, No rebound Skin: warm, normal color, No erythema Musculoskeletal: no joint effusions, muscular tenderness, generalized weakness Psychiatric: interacting appropriately, not anxious, not encephalopathic ICD10 Worksheet Patient Problems: Problems Problem Status Onset Leg weakness Acute
--- NOTE | 2016-12-19 15:54 | POSTANESTH ---
Post Anesthetic Evaluation Cardiovascular Status: Normal, Stable Respiratory Status: Tx Decrease in SpO2 Level of Consciousness/Mental Status: Can Participate in Eval Pain Control: Adequate, Prn Tx Ordered Nausea/Vomiting Control: Adequate, Prn Tx Ordered Complications Possibly Related to Anesthesia: None Noted
[2016-12-19] MEDS: DIAZEPAM 5 MG TAB PO PRN ×2 (16:32→22:39)
[2016-12-19] MEDS: HYDROmorphONE/DILAUDID 1 MG/ML SYR IVP PRN ×2 (16:35→21:03)
[2016-12-19] MEDS: oxyCODONE IR 5 MG TAB PO PRN ×2 (17:35→21:08)
[2016-12-19] MEDS ORDERED: DIAZEPAM 5 MG TAB PO ONE (18:15)
[2016-12-19] MEDS: ceFAZolin 2 GM/DEXTROSE 100 ML IV SCH (18:21)
[2016-12-19] MEDS: VALSARTAN 80 MG TAB PO SCH (21:06)
[2016-12-19] MEDS: ATORVASTATIN CALCIUM 10 MG TAB PO SCH (21:07)
[2016-12-19] MEDS ORDERED: ACETAMINOPHEN 500 MG TAB PO SCH (22:00)
[2016-12-20] MEDS: ACETAMINOPHEN 325 MG TAB PO PRN ×3 (01:28→13:54)
[2016-12-20] MEDS: oxyCODONE IR 5 MG TAB PO PRN ×4 (01:28→13:58)
[2016-12-20] MEDS: ceFAZolin 2 GM/DEXTROSE 100 ML IV SCH (03:15)
[2016-12-20] MEDS: HYDROmorphONE/DILAUDID 1 MG/ML SYR IVP PRN ×2 (03:28→08:18)
[2016-12-20 05:02] LABS: % IMMATURE GRANULYOCYTES 0.3 % (0.0-1.1); ABSOLUTE IMMATURE GRANULOCYTES 0.03 10^3/uL (0.00-0.10); ADD DIFF? NO; ADD MORPH? NO; ADD SCAN? NO; ATYPICAL LYMPHOCYTE FLAG 0 (0-99); FRAGMENT RBC FLAG 0 (0-99); HEMATOCRIT 40.8 % (40.0-51.0); HEMOGLOBIN 14.1 g/dL (13.7-17.5); LEFT SHIFT FLG 0 (0-99); LIPEMIA HEMOLYSIS FLAG 90 (0-99); MEAN CELL HEMOGLOBIN 32.2 pg (27.9-34.1); MEAN CELL HEMOGLOBIN CONCENTR. 34.6 g/dL (32.4-36.7); MEAN CELL VOLUME 93.2 fL (81.5-99.8); MEAN PLATELET VOLUME 9.8 fL (8.7-11.7); PLATELET CLUMPS FLAG 10 (0-99); PLATELET COUNT 178 10^3/uL (150-400); RED BLOOD CELL COUNT 4.38 10^6/uL (4.40-6.38)
[2016-12-20 05:20] LABS: ANION GAP 9 mEq/L (8-16); CALCIUM 8.9 mg/dL (8.5-10.4); CARBON DIOXIDE 24 mEq/l (22-31); CHLORIDE 103 mEq/L (97-110); CREATININE 0.9 mg/dL (0.7-1.3); GLOMERULAR FILTRATION RATE > 60; GLUCOSE 102 mg/dL (70-100); POTASSIUM 4.3 mEq/L (3.5-5.2); SODIUM 136 mEq/L (134-144)
[2016-12-20] MEDS: DIAZEPAM 5 MG TAB PO PRN (05:30)
--- NOTE | 2016-12-20 06:34 | NEUSURGPN ---
Date of Surgery: 12/19/16 Post Op Day: 1 Assessment/Plan: 66M s/t T10-11 laminectomy and decompression for cord compression and left sided weakness POD1 continued urinary retention post operatively, weakness and sensation improving. . optimize pain control, NSAIDs OK, order for oxy/valium in chart if necessary at DC. PT/OT for right leg weakness, would like to see how pt does with stairs may shower POD#1 lovenox POD#1 straight cath for urinary retention if needed d/w dr. Morales Subjective: still with LBP, sensation returning to his torsoe and right abdomen. still with RLE weakness. not able to urinate at this time, straight cathing. Objective: aaox3 nad MAEx4 RLE 3/5 hip adduction, 4-/5 hf, 4+/5 HE, 4/5 KF, 4+/5 KE, 4/5 DF, 5/5 PF and EHL +LT incision cdi - Physician Discussed Patient with : [facility] Physical Exam - Vitals, I&O, Labs I and O 12/19/16 12/20/16 12/21/16 05:59 05:59 05:59 Intake Total 1450 3515 Output Total 1500 Balance 1450 2014 Weight 81.647 kg Intake: Oral (ml) 450 400 IV Intake (ml) 1500 IV Infused (ml) 1000 1615 Ns 1,000 ml @ 125 mls/hr 1000 1500 IV CONT RUDY Rx#: [id number] ceFAZolin 2 GM/DEXTROSE 115 100 ml @ 200 mls/hr IV Q8H RUDY Rx#:[id number] Output: Urine (ml) 1400 Catheter 1400 Estimated Blood Loss (ml) 100 Other: Intake Quantity Yes Sufficient Output Comment Toilet st cathed for 900mls Number of Voids Toilet 1 Bladder Scan Volume (ml) Toilet 699 Vital Signs Temp Pulse Resp BP Pulse Ox 36.7 C 75 12 128/77 H 95 12/20/16 03:26 12/20/16 03:26 12/20/16 03:26 12/20/16 03:26 12/20/16 03:26 Laboratory Results 12/20/16 04:32 12/20/16 04:32 ICD10 Worksheet Patient Problems: Problems Problem Status Onset Leg weakness Acute
[2016-12-20] MEDS: METHOCARBAMOL 750 MG TAB PO PRN (08:23)
[2016-12-20] MEDS ORDERED: NALOXONE HCL 0.4 MG/ML INJ IVP PRN (08:45)
[2016-12-20] MEDS: SALMETER IH SCH ×2 (08:59→21:19)
[2016-12-20] MEDS: FLUTICASONE IH SCH ×2 (08:59→21:19)
[2016-12-20] MEDS: HYDROmorphONE/DILAUDID 6 MG/30 ML PCA IV PRN (09:20)
[2016-12-20] MEDS: predniSONE 5 MG TAB PO SCH (09:44)
[2016-12-20] MEDS: MULTIVITAMINS 1 EACH TAB PO SCH (09:45)
[2016-12-20] MEDS: HYDROXYCHLOROQUINE SULFATE 200 MG TAB PO SCH (09:45)
[2016-12-20] MEDS: SENNOSIDES/DOCUSATE SODIUM TAB PO SCH ×2 (09:45→21:16)
[2016-12-20] MEDS: POLYETHYLENE GLYCOL 3350 17 GM PKT PO PRN ×2 (09:46→12:53)
[2016-12-20] MEDS ORDERED: CYCLOBENZAPRINE 10 MG TAB PO PRN (10:53)
[2016-12-20] MEDS: DIAZEPAM 10 MG/2 ML SYR IVP PRN ×2 (12:13→23:02)
[2016-12-20] MEDS: ENOXAPARIN 40 MG/0.4 ML SYR SC SCH (12:51)
[2016-12-20] MEDS: LIDOCAINE 5% 1 EA PATCH TD SCH (13:04)
--- NOTE | 2016-12-20 13:04 | HOSPPROG ---
Hospitalist Progress Note Assessment/Plan: 66 y.o male presented with acute Right LE weakness 2/2 severe lumbar stenosis # Acute Right Ayaan-cord compression at T11-12 - POD# 1 from T11/12 laminectomy and decompression - oxygen saturations 88% on RA MRI (personally reviewed and interpreted) with severe T11/12 stenosis with cord signal change also with lumbar stenosis at L4/5 and R>L NF narrowing. 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 - NSG and neurology also following # Acute post-operative muscle spasms- continue flexeril and valium prn # acute urinary retention - straight cath x3 in past 24 hours - may need to consider gonsalez if persists # RA - continue home medications # HTN - BP 120-150 - continue home medications # Asthma - asymptomatic - continue home advair # proph - restart lovenox per NSG # diet - regular diet # dispo - > 2MN as requiring IV pain meds for post -op pain control I have discussed the case with NSG, neurology and anesthesia - all coordinating for pain control Subjective: pain is unbearable Objective: Vital Signs Temp Pulse Resp BP Pulse Ox 36.8 C 70 18 130/78 H 93 12/20/16 11:45 12/20/16 11:45 12/20/16 11:45 12/20/16 11:45 12/20/16 11:45 Laboratory Results 12/20/16 04:32 12/20/16 04:32 12/19/16 12/20/16 12/21/16 05:59 05:59 05:59 Intake Total 1450 3765 Output Total 1500 Balance 1450 2265 PT 14.0 SEC (12.0-15.0) 12/17/16 19:25 INR 1.09 (0.83-1.16) 12/17/16 19:25 - Physical Exam Constitutional: No no apparent distress Eyes: anicteric sclera Ears, Nose, Mouth, Throat: moist mucous membranes Cardiovascular: regular rate and rhythym Respiratory: no respiratory distress, no rales or rhonchi Gastrointestinal: normoactive bowel sounds, soft, non-tender abdomen Genitourinary: no bladder fullness Skin: warm, normal color Musculoskeletal: No asymmetric calves Neurologic: AAOx3 Psychiatric: anxious Lymph, Heme, Immunologic: no cervical LAD ICD10 Worksheet Patient Problems: Problems Problem Status Onset Leg weakness Acute
--- NOTE | 2016-12-20 13:05 | PDCONSULT ---
Geneticist Note: A/P: 1. Back spasms- Spent 30+ minutes with patient, added celebrex and lidocaine patch. Discussed urinary retention with patient, amenable to gonsalez, also discussed lyrica and patient has tried in past with undesirable side effects. Will be available for further recs if needed. Subjective: back spasms POD1 from T10-11 laminectomy, consultation from Dr. Barnett for pain. Objective: Temp Pulse Resp BP Pulse Ox 36.8 C 70 18 130/78 H 93 12/20/16 11:45 12/20/16 11:45 12/20/16 11:45 12/20/16 11:45 12/20/16 11:45 Generic Name Dose Route Start Last Admin Trade Name Freq PRN Reason Stop Dose Admin Acetaminophen 650 mg 12/17/16 23:26 12/20/16 05:31 Tylenol PO 06/15/17 23:25 650 mg Q4HRS PRN Administration Pain, Mild/Fever, Can Take PO Atorvastatin Calcium 10 mg 12/18/16 21:00 12/19/16 21:07 Lipitor PO 06/16/17 20:59 10 mg HS RUDY Administration Bisacodyl 10 mg 12/19/16 14:40 Dulcolax Rectal SD 06/17/17 14:39 DAILY PRN Constipation Protocol Celecoxib 200 mg 12/20/16 12:45 Celebrex PO 06/18/17 12:44 BID RUDY Cyclobenzaprine HCl 10 mg 12/20/16 10:53 Flexeril PO 06/18/17 15:59 TID PRN Pain, Moderate Diazepam 5 mg 12/20/16 10:59 12/20/16 12:13 Valium Injection IVP 06/18/17 10:58 5 mg Q6HRS PRN Administration Anxiety, Unable to Take PO Diphenhydramine HCl 25 - 50 mg 12/19/16 14:40 Benadryl PO 06/17/17 14:39 Q6HRS PRN Itching Diphenhydramine HCl 25 - 50 mg 12/19/16 14:40 Benadryl Injection IVP 06/17/17 14:39 Q6HRS PRN Itching Enoxaparin Sodium 40 mg 12/18/16 09:00 12/19/16 10:12 Lovenox SC 06/16/17 08:59 Not Given DAILY RUDY Hydromorphone HCl 0.2 - 0.4 mg 12/19/16 15:22 12/20/16 08:18 Dilaudid IVP 12/29/16 15:21 0.4 mg Q2HRS PRN Administration Pain, Severe Unable to Take PO Hydromorphone HCl 6 mg 12/20/16 08:45 12/20/16 09:20 Dilaudid Cfa IV 12/30/16 08:44 6 mg PRN PRN Administration Pain, Severe Unable To Take Po Protocol Hydroxychloroquine Sulfate 200 mg 12/19/16 09:00 12/20/16 09:45 Plaquenil PO 01/18/17 08:59 200 mg DAILY RUDY Administration Protocol Sodium Chloride 1,000 mls @ 125 mls/hr 12/18/16 15:15 12/18/16 23:49 Ns IV 06/16/17 15:14 1,000 mls CONT RUDY Administration Lactulose 20 gm 12/17/16 23:31 Cephulac PO 06/15/17 23:30 TID PRN Constipation Protocol Lidocaine 1 ea 12/21/16 09:00 Lidoderm 5% TD 06/19/17 08:59 DAILY RUDY Magnesium Hydroxide 30 ml 12/19/16 14:40 Milk Of Magnesia PO 06/17/17 14:39 DAILY PRN Constipation Protocol Methotrexate 2.5 mg 12/25/16 09:00 Rheumatrex PO 06/23/17 08:59 Q10D RUDY Miscellaneous Information 1 ea 12/20/16 21:00 Patch Removal TD 06/18/17 20:59 DAILY21 RUDY Miscellaneous Medication 0 mg 12/19/16 09:00 12/19/16 10:12 Diclofenac Sodium [Voltaren-Xr] PO 06/17/17 08:59 Not Given DAILY RUDY Multivitamins 1 each 12/19/16 09:00 12/20/16 09:45 Tab-A-Traci PO 06/17/17 08:59 1 each DAILY RUDY Administration Naloxone HCl 0.4 mg 12/20/16 08:45 Narcan IVP 06/18/17 08:44 PRN PRN Respiratory depression Protocol Ondansetron HCl 4 mg 12/17/16 23:26 Zofran IVP 06/15/17 23:25 Q4HRS PRN Nausea/Vomiting, Can't Take PO Ondansetron HCl 4 mg 12/17/16 23:26 Zofran Odt PO 06/15/17 23:25 Q4HRS PRN Nausea/Vomiting, Use 1st Oxycodone HCl 5 - 10 mg 12/19/16 14:40 12/20/16 06:18 Oxycodone Ir PO 12/29/16 14:39 5 mg Q4HRS PRN Administration Pain, Severe Able to Take PO Polyethylene Glycol 17 gm 12/19/16 14:40 12/20/16 09:46 Miralax PO 06/17/17 14:39 17 gm DAILY PRN Administration Constipation, patient prefers Protocol Prednisone 2.5 mg 12/19/16 09:00 12/20/16 09:44 Prednisone PO 06/17/17 08:59 2.5 mg DAILY RUDY Administration Fluticasone/Salmeterol 0 puffs 12/18/16 21:00 12/20/16 08:59 Advair IH 06/15/17 23:29 Not Given BID RUDY Senna/Docusate Sodium 1 - 2 tab 12/18/16 09:00 12/20/16 09:45 Senokot-S PO 06/16/17 08:59 2 tab BID RUDY Administration Protocol Valsartan 80 mg 12/18/16 21:00 12/19/16 21:06 Diovan PO 06/16/17 20:59 80 mg HS RUDY Administration Zolpidem Tartrate 5 mg 12/18/16 13:06 Ambien PO 06/16/17 13:05 HS PRN Sleep/Insomnia
[2016-12-20] MEDS: DICLOFENAC SODIUM 100 MG PO SCH (13:55)
--- NOTE | 2016-12-20 16:16 | NEUROPROG ---
Assessment: [id number] CC: F/U for Thoracic Cord Compression Narrative Summary: This male patient was initially seen 12/18/16. He reported a massage 2-3 days ago and after that noted right leg weakness and severe back pain. He presented to [facility] ER and had a T/L spinal MRI which showed some spinal stenosis and neuroforaminal narrowing as the suspected cause (T11-12 spinal stenosis with cord signal change and L4/5 spinal stenosis with R>L NF narrowing). He was given an outpatient referral to neurosurgery and discharged. Over the next 1-2 days he developed right flank sensory changes and the right leg weakness persisted so he returned to the [facility] ER. A brain/cervical MRI were obtained that showed degenerative cervical disease but no brain or cervical cord significant issues. A repeat thoracic MRI showed significant thoracic spinal stenosis at T11/12 with cord signal change that seemed to be the likely cause of his symptoms. Pt was admitted and neurology was consulted. It was felt the most likely cause of his symptoms was degenerative thoracic disease at T11-12 to neurosurgery proceeded with decompressive surgery. HPI: F/U on 12/20/16. He had a thoracic laminectomy and decompressive surgery on 12/19 w/o complications. Since the surgery he has noted improvement in his weakness and sensory changes. He does have some urinary retention and lower back pain which will hopefully improve over time as it could have been from the thoracic spinal cord compression at T11-12. Agree with plan for continuing PT/ OT and monitoring for post-op improvement. He declined physical exam as he reported the pain med for his back was working well and he did not want to re- aggravate it. PMHx: RA on plaquenil and methotrexate, HTN, asthma SHx: no tobacco FHx: psoriatic arthritis Labs: 12/17/16- CBC wnl, Coags wnl, CMP CO2 20L BUN 28H Gluc 145H Rads: 12/16/16- Lumbar MRI w/o con: Multilevel degenerative disk disease with spinal and neural foraminal stenoses as detailed above most prominent at L4-L5. 12/17/16- Brain MRI w/ and w/o con: normal (I personally visualized the images on 12/18/16) 12/17/16- Cervical MRI w/ and w/o con: 1. Multilevel degenerative change with the worst central canal stenosis at C3-C4 where there is also a spondylolisthesis. This has significantly progressed since 2008. If there is concern for instability, lateral cervical flexion extension views might be helpful. 2. No evidence for cervical cord infarction, edema or mass. 12/17/16- Thoracic MRI w/ and w/o con: Low thoracic cord compression at T11/12 due to degenerative spinal stenosis, with either cord edema or gliosis at and slightly below the stenosis. The lack of enhancement suggests that this does not represent a recent cord infarction. 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 He also had lumbar stenosis at L4/5 and R>L NF narrowing but I do not think that is symptomatic. Pt had decompressive thoracic surgery on . Hopefully, his neurologic symptoms will improve. I agree with plan for PT/ OT and closely following his post-op course. 2. Lower back pain, urinary retention: Pt still in immediate post-op time window so I am still hopeful his back pain and urinary retention will improved now that his thoracic cord was decompressed. Plan: -agree with neurosurgery management -agree with PT/OT -Neurology will continue to closely follow 35 min spent with patient, majority of time spent counseling on suspected prognosis and treatment options. Objective: Vital Signs Temp Pulse Resp BP Pulse Ox 36.7 C 76 17 125/72 H 91 L 12/20/16 16:00 12/20/16 16:00 12/20/16 16:00 12/20/16 16:00 12/20/16 16:00 Laboratory Results 12/20/16 04:32 12/20/16 04:32 12/19/16 12/20/16 12/21/16 05:59 05:59 05:59 Intake Total 1450 3765 Output Total 1500 Balance 1450 2265 PT 14.0 SEC (12.0-15.0) 12/17/16 19:25 INR 1.09 (0.83-1.16) 12/17/16 19:25 Allergies/Adverse Reactions: No Known Allergies Allergy (Verified 12/17/16 18:05)
[2016-12-20] MEDS: VALSARTAN 80 MG TAB PO SCH (21:16)
[2016-12-20] MEDS: ATORVASTATIN CALCIUM 10 MG TAB PO SCH (21:16)
[2016-12-20] MEDS: PATCH REMOVAL 1 EA PATCH TD SCH (23:09)
[2016-12-21] MEDS: HYDROmorphONE/DILAUDID 6 MG/30 ML PCA IV PRN ×2 (01:57→22:29)
[2016-12-21] MEDS: ACETAMINOPHEN 325 MG TAB PO PRN ×2 (04:41→15:45)
[2016-12-21] MEDS: DIAZEPAM 10 MG/2 ML SYR IVP PRN (04:42)
[2016-12-21] MEDS: oxyCODONE IR 5 MG TAB PO PRN ×4 (04:42→22:33)
[2016-12-21] MEDS: NS 1,000 ML IV SCH (04:54)
[2016-12-21 05:36] LABS: ANION GAP 7 mEq/L (8-16); CARBON DIOXIDE 24 mEq/l (22-31); CHLORIDE 101 mEq/L (97-110); CREATININE 0.8 mg/dL (0.7-1.3); GLOMERULAR FILTRATION RATE > 60; GLUCOSE 105 mg/dL (70-100); POTASSIUM 4.3 mEq/L (3.5-5.2); SODIUM 132 mEq/L (134-144)
--- NOTE | 2016-12-21 08:23 | NEUSURGPN ---
Date of Surgery: 12/19/16 Post Op Day: 2 Assessment/Plan: 66M s/t T10-11 laminectomy and decompression for cord compression and left sided weakness POD2 weakness and sensation improving in RLE, low back pain separate from surgical site -optimize pain control, NSAIDs OK, order for oxy/valium in chart if necessary at DC. 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 NORM may be both therapeutic and diagnostic for lower back pain -may shower POD#1 -lovenox POD#1-will need to hold for NORM 12/21/16 -NPO for NORM Subjective: Patient states thoracic surgery was a success but has terrible lower back pain. State his right leg feels stronger Objective: aaox3 nad MAEx4 RLE 3/5 hip adduction, 4-/5 hf, 5/5 Right PF and Right EHL +LT incision cdi Urinary Catheter in Place: Yes Urinary Catheter Indication: Other (Use Comment) (retention) Catheter Insertion Date: 12/20/16 - Physician Discussed Patient with Dr.: Carmen Neurosurgery Physical Exam - Vitals, I&O, Labs I and O 12/20/16 12/21/16 12/22/16 05:59 05:59 05:59 Intake Total 3765 700 Output Total 1500 1850 Balance 2265 -1150 Weight 81.647 kg Intake: Oral (ml) 650 400 IV Intake (ml) 1500 IV Infused (ml) 1615 300 Ns 1,000 ml @ 125 mls/hr 1500 300 IV CONT RUDY Rx#: [id number] ceFAZolin 2 GM/DEXTROSE 115 100 ml @ 200 mls/hr IV Q8H RUDY Rx#:[id number] Output: Urine (ml) 1400 1850 Catheter 1400 1850 Estimated Blood Loss (ml) 100 Other: Output Comment Toilet st cathed for 900mls Bladder Scan Volume (ml) Toilet 699 Vital Signs Temp Pulse Resp BP Pulse Ox 36.8 C 96 16 134/80 H 91 L 12/21/16 08:00 12/21/16 08:00 12/21/16 08:00 12/21/16 08:00 12/21/16 08:00 Laboratory Results 12/20/16 04:32 12/21/16 05:05 ICD10 Worksheet Patient Problems: Problems Problem Status Onset Leg weakness Acute
[2016-12-21] MEDS ORDERED: LIDOCAINE 5% 1 EA PATCH TD SCH (09:00)
--- NOTE | 2016-12-21 09:53 | NEUROPROG ---
Assessment: Assuming care from Dr. Kerns today. SUMMARY: In brief, the patient presented on 12/18 with RLE weakness and sensory loss in the right flank and both legs. He was found to have T11-12 compressive myelopathy with cord signal change (nonenhancing) from thoracic spinal stenosis (disc bulge and facet hypertrophy). He also had a lumbar MRI which revealed severe spinal stenosis at L4-5 and multilevel degenerative changes without critical neural foraminal stenosis (mild-moderate at most levels tending to be worse on the right). He underwent decompressive laminectomy on 12/19 for his thoracic symptoms resembling Brown-Sequard phenomenon. INTERVAL HISTORY: Today he is a bit improved in regards to his back pain. He feels strength and sensation are improving. Still having severe flares of low back pain, caudal to the incision, with passive and active proximal leg movements (namely with hip flexion). Still has Jefferson in place for urinary retention, though, is able to feel bladder fullness. Passing gas and able to sense rectal fullness. Has been up with PT, though, only briefly due to pain. Main concern today is his low back pain. EXAM: GEN: WDWN laying in NAD MS: awake, alert, oriented to all spheres. Speech nondysarthric. No language disturbance. Follows commands. Attends to both sides. Recent/remote memory grossly intact. Mood euthymic. CN: PERRLA. VFF. Primary gaze centered. Full ocular motility. Facial sensation preserved. Face symmetric. Hearing grossly intact to finger rub. Palatoglossal movements intact. Shoulder shrug and head turn strong. MOTOR: normal bulk. No adventitial movements. Trace lower tone in BLEs. LLE with hip flexor weakness at 4/5, namely due to pain. All other LLE groups full power. LLE is globally weak with 3/5 hip flexion (with severe pain) and all other groups at 4/5. BUEs full power. SENSORY: slightly reduced PP in the right lower abdomen and flank, patchy reduction of PP in the LLE, more proximally, loss of temp in distal LLE, absent JPS right toes/ankles, diminished vib right toes/malleoli. No extinction. COORD: no ataxia FN, cannot assess BLEs due to severe pain with proximal leg movement. REFLEX: plantars equivocal, no clonus. Ankle jerks and patellars 1/4 right, 2/ 4 left. No crossed adductor. BUE groups 2/4. 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 Patient was seen with neurosurgery COMMODITY LEAD Sherice and Dr. Barnett. We all discussed reasonable expectations regarding his post-op course, in that it will take upwards of days to several weeks of rehab to realize full recovery, as he had a thoracic laminectomy with cord compression and cord edema. Discussed transitioning from IV to PO analgesics, with goal of weaning narcotics in favor of NSAIDs to address the underlying inflammation. Also discussed how he may have some regional myofascial pain from post-op inflammation caudal to the incision site. However, more than likely, he is now realizing the full degree of discomfort from his spinal stenosis having been immobilized with his hospitalization, as well as having his spinal cord decompressed (allowing full transmission of caudal pain signals upward). He may also be having regional referred pain from ongoing, but resolving spinal cord edema/irritation. Overall, the discussion was focused on realistic expectations and anticipatory guidance. Patient's sister (retired family physician) was present and we discussed the above at length, as well. Recommend continued post-op care per neurosurgery. Discussed transitioning from dilaudid VAT OPERATOR to oral analgesics. NSAID was added by anesthesia yesterday, which I think is a good addition. Discussed working with rehab, as early mobilization improves outcomes and can, in and of itself, reduce inflammation. Continue to work on moving bowels (mobilize, stool softeners PRN, stay well hydrated). Continue to work on weaning from Jefferson (reducing narcotics may aid in hastening this process). Will likely need inpatient rehab. Will need to work on post-op recovery, as well as PT directed at known lumbar spinal stenosis. 60 mins spent in direct patient care activities on the floor. Objective: Vital Signs Temp Pulse Resp BP Pulse Ox 36.8 C 85 18 130/78 H 95 12/21/16 09:51 12/21/16 09:51 12/21/16 09:51 12/21/16 09:51 12/21/16 09:51 Laboratory Results 12/20/16 04:32 12/21/16 05:05 12/20/16 12/21/16 12/22/16 05:59 05:59 05:59 Intake Total 3765 700 Output Total 1500 1850 Balance 2265 -1150 PT 14.0 SEC (12.0-15.0) 12/17/16 19:25 INR 1.09 (0.83-1.16) 12/17/16 19:25 Allergies/Adverse Reactions: No Known Allergies Allergy (Verified 12/17/16 18:05)
[2016-12-21] MEDS: HYDROXYCHLOROQUINE SULFATE 200 MG TAB PO SCH (10:13)
[2016-12-21] MEDS: METHOCARBAMOL 750 MG TAB PO SCH ×3 (10:13→22:33)
[2016-12-21] MEDS: oxyCODONE CR 15 MG TAB PO SCH ×2 (10:13→20:01)
[2016-12-21] MEDS: MULTIVITAMINS 1 EACH TAB PO SCH (10:14)
[2016-12-21] MEDS: SENNOSIDES/DOCUSATE SODIUM TAB PO SCH ×2 (10:14→20:02)
[2016-12-21] MEDS: predniSONE 5 MG TAB PO SCH (10:15)
[2016-12-21] MEDS: ENOXAPARIN 40 MG/0.4 ML SYR SC SCH (10:16)
[2016-12-21] MEDS: LIDOCAINE 5% 1 EA PATCH TD SCH (10:20)
[2016-12-21] MEDS: DICLOFENAC SODIUM 100 MG PO SCH (10:20)
[2016-12-21] MEDS: FLUTICASONE IH SCH ×2 (10:55→20:09)
[2016-12-21] MEDS: SALMETER IH SCH ×2 (10:55→20:09)
--- NOTE | 2016-12-21 15:15 | HOSPPROG ---
Hospitalist Progress Note Assessment/Plan: 66 y.o male presented with acute Right LE weakness 2/2 severe lumbar stenosis # Acute Right Ayaan-cord compression at T11-12 - POD# 2 from T11/12 laminectomy and decompression - oxygen saturations 88% on RA MRI -with severe T11/12 stenosis with cord signal change also with lumbar stenosis at L4/5 and R>L NF narrowing. 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 - cont pain management as above - PT/OT # Hyponatremia - suspect 2/2 acute illness - Na 132 - recheck in am - continue current IVF until PO adequate # acute urinary retention - prn straight cath # RA - continue home medications # HTN - BP 120-150 - continue home medications # Asthma - asymptomatic - continue home advair # proph - lovenox # diet - regular diet # dispo - > 2MN as requiring IV pain meds for post -op pain control I have discussed the case with neurology and neurosurgery - we will continue with multi-modal pain control Subjective: pain persists Objective: Vital Signs Temp Pulse Resp BP Pulse Ox 36.8 C 70 16 114/73 95 12/21/16 13:49 12/21/16 13:49 12/21/16 13:49 12/21/16 13:49 12/21/16 13:49 Laboratory Results 12/20/16 04:32 12/21/16 05:05 12/20/16 12/21/16 12/22/16 05:59 05:59 05:59 Intake Total 3765 700 Output Total 1500 1850 950 Balance 2265 -1150 -950 PT 14.0 SEC (12.0-15.0) 12/17/16 19:25 INR 1.09 (0.83-1.16) 12/17/16 19:25 - Physical Exam Constitutional: appears nourished Eyes: anicteric sclera Ears, Nose, Mouth, Throat: moist mucous membranes Cardiovascular: regular rate and rhythym Respiratory: no respiratory distress, no rales or rhonchi Gastrointestinal: normoactive bowel sounds, soft, non-tender abdomen Genitourinary: no bladder fullness Skin: warm, normal color Musculoskeletal: No asymmetric calves Neurologic: AAOx3 Psychiatric: anxious Lymph, Heme, Immunologic: no cervical LAD ICD10 Worksheet Patient Problems: Problems Problem Status Onset Leg weakness Acute
[2016-12-21] MEDS ORDERED: fentaNYL 100 MCG/2 ML INJ ONE (15:41)
[2016-12-21] MEDS ORDERED: MIDAZOLAM 2 MG/2 ML VIAL ONE (15:41)
[2016-12-21] MEDS ORDERED: TRIAMCINOLONE ACETONIDE 200 MG/5 ML MDV IM ONE (15:52)
[2016-12-21] MEDS ORDERED: IOPAMIDOL (ISOVUE-M 300) 15 ML VIAL ONE (15:52)
[2016-12-21] MEDS ORDERED: LIDOCAINE 1% 300 MG/30 ML SDV ONE (15:52)
--- NOTE | 2016-12-21 18:26 | POSTOPPROG ---
Post Op Note Date of Operation: 12/21/16 Surgeon: Darren Jacome Anesthesia: IV Sedation Pre-op Diagnosis: Spinal stenosis Post-op Diagnosis: same Indication: Disabling back pain and leg weakness Procedure: Lumbar epidural steroid injection Findings: 2 ml kenalog (80 mg) and 3 ml 1% Xylocaine injected via L4-5 Inf/Abcess present in the surg proc area at time of surgery?: No
[2016-12-21] MEDS: VALSARTAN 80 MG TAB PO SCH (20:02)
[2016-12-21] MEDS: ATORVASTATIN CALCIUM 10 MG TAB PO SCH (20:02)
[2016-12-21] MEDS: POLYETHYLENE GLYCOL 3350 17 GM PKT PO PRN (20:09)
[2016-12-21] MEDS: PATCH REMOVAL 1 EA PATCH TD SCH (22:37)
[2016-12-22] MEDS: oxyCODONE IR 5 MG TAB PO PRN ×6 (02:26→23:44)
[2016-12-22 05:41] LABS: ANION GAP 8 mEq/L (8-16); CALCIUM 8.8 mg/dL (8.5-10.4); CARBON DIOXIDE 24 mEq/l (22-31); CHLORIDE 103 mEq/L (97-110); CREATININE 0.8 mg/dL (0.7-1.3); GLOMERULAR FILTRATION RATE > 60; GLUCOSE 119 mg/dL (70-100); POTASSIUM 4.8 mEq/L (3.5-5.2); SODIUM 135 mEq/L (134-144)
--- NOTE | 2016-12-22 08:29 | NEUSURGPN ---
Date of Surgery: 12/19/16 Post Op Day: 3 Assessment/Plan: 66M s/t T10-11 laminectomy and decompression for cord compression and left sided weakness POD#3 weakness and sensation improving in RLE, low back pain separate from surgical site -optimize pain control, NSAIDs OK, order for oxy/valium in chart if necessary at DC. 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 Patient remains in low back pain, waiting to see if NORM was effective -may shower Subjective: Patient has low back pain, improved right foot strength Objective: aaox3 nad MAEx4 RLE 3/5 hip adduction, 4/5 hf, 5/5 Right PF and Right EHL +LT incision/dressing CDI Neuro Check Frequency: per routine Urinary Catheter in Place: Yes Urinary Catheter Indication: Other (Use Comment) (retention) Catheter Insertion Date: 12/20/16 - Physician Discussed Patient with : Carmen Neurosurgery Physical Exam - Vitals, I&O, Labs I and O 12/21/16 12/22/16 12/23/16 05:59 05:59 05:59 Intake Total 700 1425 Output Total 1850 4100 Balance -1150 -2675 Intake: Oral (ml) 400 875 IV Infused (ml) 300 550 Ns 1,000 ml @ 125 mls/hr 300 550 IV CONT RUDY Rx#: [id number] Output: Urine (ml) 1850 4100 Catheter 1850 1999 Urinal 2100 Vital Signs Temp Pulse Resp BP Pulse Ox 37.0 C 89 16 133/83 H 92 12/22/16 08:00 12/22/16 08:00 12/22/16 08:00 12/22/16 08:00 12/22/16 08:00 Laboratory Results 12/20/16 04:32 12/22/16 05:03 ICD10 Worksheet Patient Problems: Problems Problem Status Onset Leg weakness Acute
[2016-12-22] MEDS: LIDOCAINE 5% 1 EA PATCH TD SCH (09:15)
[2016-12-22] MEDS: predniSONE 5 MG TAB PO SCH (09:16)
[2016-12-22] MEDS: SENNOSIDES/DOCUSATE SODIUM TAB PO SCH ×2 (09:16→20:55)
[2016-12-22] MEDS: METHOCARBAMOL 750 MG TAB PO SCH (09:16)
[2016-12-22] MEDS: MULTIVITAMINS 1 EACH TAB PO SCH (09:16)
[2016-12-22] MEDS: oxyCODONE CR 15 MG TAB PO SCH ×2 (09:16→20:54)
[2016-12-22] MEDS: HYDROXYCHLOROQUINE SULFATE 200 MG TAB PO SCH (09:16)
[2016-12-22] MEDS: SALMETER IH SCH ×2 (09:57→21:10)
[2016-12-22] MEDS: FLUTICASONE IH SCH ×2 (09:57→21:10)
--- NOTE | 2016-12-22 12:01 | HOSPPROG ---
Hospitalist Progress Note Assessment/Plan: 66 y.o male presented with acute Right LE weakness 2/2 severe lumbar stenosis # Acute Right Ayaan-cord compression at T11-12 - POD# 3 from T11/12 laminectomy and decompression - oxygen saturations 90% on RA MRI -with severe T11/12 stenosis with cord signal change also with lumbar stenosis at L4/5 and R>L NF narrowing. pain stable overnight with current regimen - anesthesia consulted on request of family - cont tylenol, diazepam, dilaudid NARCOTICS INVESTIGATOR, lidoderm patch and celecoxib - NSG and neurology also following # Severe Lumbar stenosis - pt with persistent lower back pain -- s/p epidural steroid injection yesterday by IR at L4-5 MRI (personally reviewed and interpreted) shows severe lumbar stenosis at L4 /5 and R>L NF narrowing. - cont valium, flexeril, celecoxib, tylenol and lidoderm patch - PT/OT # Hyponatremia - suspect 2/2 acute illness - Na 132-> 135 this am - recheck in am - continue current IVF until PO adequate # acute urinary retention - gonsalez - attempt removal when patient mobilizing # RA - continue home medications # HTN - BP 120-150 - continue home medications # Asthma - asymptomatic - continue home advair # proph - lovenox # diet - regular diet # dispo - > 2MN as requiring IV pain meds for post -op pain control I have discussed the case with RN - will work towards discontinuing dilaudid NARCOTICS INVESTIGATOR today Subjective: pain is still terrible Objective: Vital Signs Temp Pulse Resp BP Pulse Ox 37.2 C 79 16 137/72 H 94 12/22/16 11:17 12/22/16 11:17 12/22/16 11:17 12/22/16 11:17 12/22/16 11:17 Laboratory Results 12/20/16 04:32 12/22/16 05:03 12/21/16 12/22/16 12/23/16 05:59 05:59 05:59 Intake Total 700 1425 Output Total 1850 4100 Balance -1150 -2675 PT 14.0 SEC (12.0-15.0) 12/17/16 19:25 INR 1.09 (0.83-1.16) 12/17/16 19:25 - Physical Exam Constitutional: appears nourished Eyes: anicteric sclera Ears, Nose, Mouth, Throat: dry mucous membranes Cardiovascular: regular rate and rhythym Respiratory: no respiratory distress, no rales or rhonchi Gastrointestinal: normoactive bowel sounds, soft, non-tender abdomen Genitourinary: no bladder fullness Skin: warm, normal color Musculoskeletal: No asymmetric calves Neurologic: AAOx3 Psychiatric: interacting appropriately Lymph, Heme, Immunologic: no cervical LAD ICD10 Worksheet Patient Problems: Problems Problem Status Onset Leg weakness Acute
[2016-12-22] MEDS: DIAZEPAM 2 MG TAB PO SCH ×3 (12:23→23:45)
[2016-12-22] MEDS: ENOXAPARIN 40 MG/0.4 ML SYR SC SCH (15:10)
[2016-12-22] MEDS: POLYETHYLENE GLYCOL 3350 17 GM PKT PO PRN (15:36)
[2016-12-22] MEDS: CYCLOBENZAPRINE 10 MG TAB PO SCH ×2 (15:36→20:53)
--- NOTE | 2016-12-22 15:52 | NEUROPROG ---
Assessment: SUMMARY: In brief, the patient presented on 12/18 with RLE weakness and sensory loss in the right flank and both legs. He was found to have T11-12 compressive myelopathy with cord signal change (nonenhancing) from thoracic spinal stenosis (disc bulge and facet hypertrophy). He also had a lumbar MRI which revealed severe spinal stenosis at L4-5 and multilevel degenerative changes without critical neural foraminal stenosis (mild-moderate at most levels tending to be worse on the right). He underwent decompressive laminectomy on 12/19 for his thoracic symptoms resembling Brown-Sequard phenomenon. INTERVAL HISTORY: Still with back pain across the very low lumbar region, basically extending broadly/bilaterally at the level of the lumbosacral junction . Had lumbar NORM yesterday which didn't help. Sensation is returning in the abdomen/flank and BLEs, as is strength in BLEs. EXAM: GEN: WDWN laying in NAD MS: awake, alert, oriented to all spheres. Speech nondysarthric. No language disturbance. Follows commands. Attends to both sides. Recent/remote memory grossly intact. Mood euthymic. CN: PERRLA. VFF. Primary gaze centered. Full ocular motility. Facial sensation preserved. Face symmetric. Hearing grossly intact to finger rub. Palatoglossal movements intact. Shoulder shrug and head turn strong. MOTOR: normal bulk. No adventitial movements. Trace lower tone in BLEs. LLE with hip flexor weakness at 4/5, namely due to pain. All other LLE groups full power. Right hip flexion 3/5 secondary to pain, but otherwise RLE groups are now 5/5. BUEs full power. SENSORY: right lower abdomen/flank (below umbilicus) with only trace reduction in PP. LLE has regained most sensation to PP and temp is intact. RLE now has full proprioception and vib sensation. COORD: no ataxia FN, cannot assess BLEs due to severe pain with proximal leg movement. REFLEX: plantars slightly upgoing, no clonus. DTRs are all 2/4 now. 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 He may have some regional myofascial pain from post-op inflammation caudal to the incision site. However, more than likely, he is now realizing the full degree of discomfort from his spinal stenosis having been immobilized with his hospitalization, as well as having his spinal cord decompressed (allowing full transmission of caudal pain signals upward). He may also be having regional referred pain from ongoing, but resolving spinal cord edema/irritation. Recommend continued post-op care per neurosurgery. Pain control per neurosurgery and hospitalist teams. Discussed working with rehab, as early mobilization improves outcomes and can, in and of itself, reduce inflammation. Continue to work on moving bowels (mobilize, stool softeners PRN, stay well hydrated). Continue to work on weaning from Jefferson (reducing narcotics may aid in hastening this process). Will likely need inpatient rehab. Will need to work on post-op recovery, as well as PT directed at known lumbar spinal stenosis. No further recommendations. Will sign off. 30 mins in direct patient care activities on the floor, with more than 50% spent in counseling and coordination of care. Objective: Vital Signs Temp Pulse Resp BP Pulse Ox 37.2 C 79 16 137/72 H 94 12/22/16 11:17 12/22/16 11:17 12/22/16 11:17 12/22/16 11:17 12/22/16 11:17 Laboratory Results 12/20/16 04:32 12/22/16 05:03 12/21/16 12/22/16 12/23/16 05:59 05:59 05:59 Intake Total 700 1425 Output Total 1850 4100 1500 Balance -1150 -2675 -1500 PT 14.0 SEC (12.0-15.0) 12/17/16 19:25 INR 1.09 (0.83-1.16) 12/17/16 19:25 Allergies/Adverse Reactions: No Known Allergies Allergy (Verified 12/17/16 18:05)
[2016-12-22] MEDS: ACETAMINOPHEN 325 MG TAB PO PRN (19:42)
[2016-12-22] MEDS: ATORVASTATIN CALCIUM 10 MG TAB PO SCH (20:53)
[2016-12-22] MEDS: PATCH REMOVAL 1 EA PATCH TD SCH (20:54)
[2016-12-22] MEDS: VALSARTAN 80 MG TAB PO SCH (20:55)
[2016-12-23] MEDS: ACETAMINOPHEN 325 MG TAB PO PRN ×2 (01:06→22:01)
[2016-12-23] MEDS: HYDROmorphONE/DILAUDID 1 MG/ML SYR IVP PRN ×3 (01:07→13:17)
[2016-12-23] MEDS: oxyCODONE IR 5 MG TAB PO PRN ×5 (03:38→20:15)
[2016-12-23 05:17] LABS: HEMATOCRIT 40.9 % (40.0-51.0); HEMOGLOBIN 14.3 g/dL (13.7-17.5); MEAN CELL HEMOGLOBIN 32.4 pg (27.9-34.1); MEAN CELL VOLUME 92.5 fL (81.5-99.8); RED BLOOD CELL COUNT 4.42 10^6/uL (4.40-6.38); RED CELL DISTRIBUTION WIDTH 12.3 % (11.5-15.2)
[2016-12-23 05:30] LABS: ANION GAP 8 mEq/L (8-16); CALCIUM 9.1 mg/dL (8.5-10.4); CARBON DIOXIDE 26 mEq/l (22-31); CHLORIDE 101 mEq/L (97-110); CREATININE 0.8 mg/dL (0.7-1.3); GLOMERULAR FILTRATION RATE > 60; GLUCOSE 111 mg/dL (70-100); SODIUM 135 mEq/L (134-144)
[2016-12-23] MEDS: DIAZEPAM 2 MG TAB PO SCH ×3 (05:41→18:09)
[2016-12-23] MEDS: oxyCODONE CR 15 MG TAB PO SCH ×2 (07:34→20:15)
[2016-12-23] MEDS: CYCLOBENZAPRINE 10 MG TAB PO SCH ×3 (07:37→22:01)
[2016-12-23] MEDS: HYDROXYCHLOROQUINE SULFATE 200 MG TAB PO SCH (07:37)
[2016-12-23] MEDS: MULTIVITAMINS 1 EACH TAB PO SCH (07:37)
--- NOTE | 2016-12-23 07:37 | NEUSURGPN ---
Assessment/Plan: Assessment: 66 yo M s/p T10-11 laminectomy and decompression for cord compression and left sided weakness POD#4 Plan: -weakness and sensation improving in RLE, low back pain separate from surgical site -optimize pain control, NSAIDs OK, order for oxy/valium in chart if necessary at DC -continue with Oxycontin -reviewed films and spoke with Dr Morales and ok with trying Caudal injection- ordered -PT/OT for right leg weakness, would like to see how pt does with stairs -IR did NORM L4-5 12/21/16, patient has severe stenosis at this level. Patient remains in low back pain-try caudal as noted above -may shower -warning signs discussed -call with any questions or concerns -Dr Morales to see pt this afternoon Subjective: Awake and alert. NAD. Eating/drinking and voiding. No f/c/n/v/d. No canseco/neck/ chest/abd or gu complaints. Objective: aaox3 nad MAEx4 RLE 3+/5 hip adduction, 4/5 hf, 5/5 Right PF and Right EHL +LT incision/dressing CDI Neuro Check Frequency: per routine Urinary Catheter in Place: No Catheter Insertion Date: 12/20/16 - Physician Discussed Patient with : Carmen Neurosurgery Physical Exam - Vitals, I&O, Labs I and O 12/22/16 12/23/16 12/24/16 05:59 05:59 05:59 Intake Total 1425 800 Output Total 4100 2700 Balance -2675 -1900 Intake: Oral (ml) 875 800 IV Infused (ml) 550 Ns 1,000 ml @ 125 mls/hr 550 IV CONT RUDY Rx#: [id number] Output: Urine (ml) 4100 2700 Catheter 2000 450 Urinal 2100 2250 Other: Intake Quantity Yes Sufficient Number of Voids Catheter 1 Vital Signs Temp Pulse Resp BP Pulse Ox 36.9 C 67 15 153/88 H 94 12/23/16 04:00 12/23/16 04:00 12/23/16 04:00 12/23/16 04:00 12/23/16 04:00 Laboratory Results 12/23/16 04:48 12/23/16 04:48 ICD10 Worksheet Patient Problems: Problems Problem Status Onset Leg weakness Acute
[2016-12-23] MEDS: predniSONE 5 MG TAB PO SCH (07:38)
[2016-12-23] MEDS: SENNOSIDES/DOCUSATE SODIUM TAB PO SCH ×2 (07:38→20:16)
[2016-12-23] MEDS: POLYETHYLENE GLYCOL 3350 17 GM PKT PO PRN (07:39)
[2016-12-23] MEDS: LIDOCAINE 5% 1 EA PATCH TD SCH (07:39)
[2016-12-23] MEDS: ENOXAPARIN 40 MG/0.4 ML SYR SC SCH (07:39)
[2016-12-23] MEDS: FLUTICASONE IH SCH ×2 (08:50→22:18)
[2016-12-23] MEDS: SALMETER IH SCH ×2 (08:50→22:18)
[2016-12-23] MEDS ORDERED: MAGNESIUM CITRATE 300 ML BOTTLE PO ONE (11:00)
--- NOTE | 2016-12-23 16:28 | HOSPPROG ---
Hospitalist Progress Note Assessment/Plan: 66 y.o male presented with acute Right LE weakness 2/2 severe lumbar stenosis # Acute Right Ayaan-cord compression at T11-12 - POD# 4 from T11/12 laminectomy and decompression - oxygen saturations 90% on RA MRI -with severe T11/12 stenosis with cord signal change also with lumbar stenosis at L4/5 and R>L NF narrowing. Patient with improved mobility overnight- pain persists - neurosurgery offering sacral injection if pain persist - cont tylenol, diazepam, dilaudid PATIENT FINANCIAL ADVOCATE, lidoderm patch and celecoxib - NSG and neurology also following # Severe Lumbar stenosis - pt with persistent lower back pain -- s/p epidural steroid injection yesterday by IR at L4-5 MRI (personally reviewed and interpreted) shows severe lumbar stenosis at L4 /5 and R>L NF narrowing. - cont valium, flexeril, celecoxib, tylenol and lidoderm patch - PT/OT # Hyponatremia - suspect 2/2 acute illness - Na 132-> remains 135 this am - recheck in am - continue current IVF until PO adequate # acute urinary retention - gonsalez - attempt removal tomorrow if continues to increase ambulation # RA - continue home medications # HTN - BP 120-150 - continue home medications # Asthma - asymptomatic - continue home advair # proph - lovenox # diet - regular diet # dispo - > 2MN as requiring IV pain meds for post -op pain control I have discussed the case with RN - successfully weaned off Dilaudid PATIENT FINANCIAL ADVOCATE yesterday will use IV Dilaudid pushes to encourage increased activity Subjective: pain persists but mobility increased Objective: Vital Signs Temp Pulse Resp BP Pulse Ox 36.7 C 78 15 132/80 H 93 12/23/16 15:35 12/23/16 15:35 12/23/16 15:35 12/23/16 15:35 12/23/16 15:35 Laboratory Results 12/23/16 04:48 12/23/16 04:48 12/22/16 12/23/16 12/24/16 05:59 05:59 05:59 Intake Total 1425 800 Output Total 4100 2700 985 Balance -2675 -1900 -985 PT 14.0 SEC (12.0-15.0) 12/17/16 19:25 INR 1.09 (0.83-1.16) 12/17/16 19:25 - Physical Exam Constitutional: appears nourished Eyes: anicteric sclera Ears, Nose, Mouth, Throat: moist mucous membranes Cardiovascular: regular rate and rhythym Respiratory: no respiratory distress Gastrointestinal: normoactive bowel sounds, soft, non-tender abdomen Genitourinary: no bladder fullness Skin: warm, normal color Musculoskeletal: No asymmetric calves Neurologic: AAOx3 Psychiatric: interacting appropriately Lymph, Heme, Immunologic: no cervical LAD ICD10 Worksheet Patient Problems: Problems Problem Status Onset Leg weakness Acute
[2016-12-23] MEDS: ATORVASTATIN CALCIUM 10 MG TAB PO SCH (20:13)
[2016-12-23] MEDS: VALSARTAN 80 MG TAB PO SCH (20:16)
[2016-12-23] MEDS: PATCH REMOVAL 1 EA PATCH TD SCH (20:16)
[2016-12-24] MEDS: oxyCODONE IR 5 MG TAB PO PRN ×4 (00:06→13:12)
[2016-12-24] MEDS: DIAZEPAM 2 MG TAB PO SCH ×3 (00:06→12:10)
[2016-12-24 04:18] VITALS: RESP 16
[2016-12-24 08:04] VITALS: TEMP 98.2
[2016-12-24] MEDS: SENNOSIDES/DOCUSATE SODIUM TAB PO SCH (08:48)
[2016-12-24] MEDS: HYDROXYCHLOROQUINE SULFATE 200 MG TAB PO SCH (08:48)
[2016-12-24] MEDS: predniSONE 5 MG TAB PO SCH (08:49)
[2016-12-24] MEDS: oxyCODONE CR 15 MG TAB PO SCH (08:49)
[2016-12-24] MEDS: MULTIVITAMINS 1 EACH TAB PO SCH (08:50)
[2016-12-24] MEDS: LIDOCAINE 5% 1 EA PATCH TD SCH (08:52)
[2016-12-24] MEDS: SALMETER IH SCH (09:00)
[2016-12-24] MEDS ORDERED: CYCLOBENZAPRINE 10 MG TAB PO SCH (09:00)
[2016-12-24] MEDS ORDERED: ENOXAPARIN 40 MG/0.4 ML SYR SC SCH (09:00)
[2016-12-24] MEDS: FLUTICASONE IH SCH (09:00)
[2016-12-24 11:15] VITALS: BP 122/80; PULSE 91; O2SAT 93
--- NOTE | 2016-12-24 11:18 | NEUSURGPN ---
Date of Surgery: 12/19/16 Post Op Day: 5 Assessment/Plan: 66M s/t T10-11 laminectomy and decompression for cord compression and left sided weakness -weakness and sensation continues to improve in RLE, low back pain separate from surgical site -optimize pain control, NSAIDs OK, order for oxy/valium in chart if necessary at DC. -PT/OT would like to see how pt does with stairs -IR did NORM L4-5 12/21/16, patient has severe stenosis at this level. Patient remains in low back pain -DC gonsalez -Rehab consulted, patient would like to go today or tomorrow -Understands he may require fusion surgery to address his lumbar condition at a later time Subjective: Still having lower back spasms, ambulating more Objective: aaox3 nad MAEx4 RLE 4/5 hip adduction, 5/5 hf, 5/5 Right PF and Right EHL +LT incision/dressing CDI Neuro Check Frequency: per routine Urinary Catheter in Place: Yes Urinary Catheter Indication: Other (Use Comment) (retention, will remove today) Catheter Insertion Date: 12/20/16 - Physician Discussed Patient with : Carmen Neurosurgery Physical Exam - Vitals, I&O, Labs I and O 12/23/16 12/24/16 12/25/16 05:59 05:59 05:59 Intake Total 800 400 Output Total 2700 2385 Balance -1899 -1984 Intake: Oral (ml) 800 400 Output: Urine (ml) 2700 2385 Catheter 450 1200 Urinal 2250 1185 Other: Intake Quantity Yes Sufficient Number of Voids Catheter 1 Urinal 1 Number of Stools Toilet 2 Vital Signs Temp Pulse Resp BP Pulse Ox 36.8 C 69 16 169/99 H 94 12/24/16 08:03 12/24/16 08:03 12/24/16 08:03 12/24/16 08:03 12/24/16 08:03 Laboratory Results 12/23/16 04:48 12/23/16 04:48 ICD10 Worksheet Patient Problems: Problems Problem Status Onset Leg weakness Acute
--- NOTE | 2016-12-24 11:25 | HOSPPROG ---
Hospitalist Progress Note Assessment/Plan: Briefly the patient is a 66-year-old male who was admitted on 12/17 with right lower extremity weakness. He has a history of rheumatoid arthritis that is well controlled. Prior to this admission he had some massage work done and when he woke up the next morning he noticed that his right lower extremity was much weaker than his left. He came to the emergency room and had a lumbar MRI / thoracic MRI which noted that he had a low thoracic cord compression at T11/ 12 due to degenerative spinal stenosis with cord edema. The lumbar MRI showed spinal neural foraminal stenosis most prominent at L4 and L5. He underwent decompressive laminectomy in 12/19 for his thoracic symptoms resembling Brown - Sequard phenomenon. He continued to have significant lumbar pain with back spasms and on 12/21 he underwent a lumbar epidural steroid injection. Today is my 1st encounter with the patient. Chart reviewed. Currently patient is getting evaluated by inpatient rehabilitation to see if he qualifies for this. Today is my 1st encounter with the patient. Chart reviewed. * Acute back pain /noted to have a right shawn cord compression at T11-12 postop day 5. for a T10-T11 laminectomy for decompression has ongoing significant weakness to right leg would benefit from IP rehab if possible/ otherwise will need a SNF * severe lumbar stenosis status post epidural steroid injection on December 21 *spasms ongoing but he feels this is better * hyponatremia resolved * acute urinary retention gonsalez removed this morning suspect he has retention from narcotics * rheumatoid arthritis home meds cont * hypertension currently, normotensive * asthma no s/sx *Plan: dc to either SNF or IP rehab today Subjective: Pat continues to have back spasms. Objective: Vital Signs Temp Pulse Resp BP Pulse Ox 36.8 C 91 16 122/80 H 93 12/24/16 08:03 12/24/16 11:14 12/24/16 11:14 12/24/16 11:14 12/24/16 11:14 Laboratory Results 12/23/16 04:48 12/23/16 04:48 12/23/16 12/24/16 12/25/16 05:59 05:59 05:59 Intake Total 800 400 Output Total 2700 2385 Balance -1899 -1984 PT 14.0 SEC (12.0-15.0) 12/17/16 19:25 INR 1.09 (0.83-1.16) 12/17/16 19:25 - Physical Exam Constitutional: uncomfortable Eyes: PERRL Ears, Nose, Mouth, Throat: hearing normal Cardiovascular: regular rate and rhythym Respiratory: no respiratory distress Gastrointestinal: normoactive bowel sounds Skin: warm Musculoskeletal: generalized weakness Neurologic: AAOx3 Psychiatric: interacting appropriately ICD10 Worksheet Patient Problems: Problems Problem Status Onset Leg weakness Acute
--- NOTE | 2016-12-24 13:05 | PDIAF ---
- Diagnosis Diagnosis: r shawn cord compression@T11-T12 s/p decompression Code Status: Full Code - Medication Management Discharge Medications: Medications to Continue on Transfer Aspirin [Aspirin 325 mg (*)] 325 mg PO DAILY PRN 12/18/16 [Last Taken Unknown] Fluticasone/Salmeterol [Advair 250-50 Diskus] 1 puffs PO BID 12/18/16 [Last Taken 12/18/16 1 puff] Hydroxychloroquine Sulfate [Plaquenil 200 mg (*)] 200 mg PO DAILY 12/18/16 [ Last Taken Unknown] Methotrexate Sodium [Rheumatrex] 2.5 mg PO Q10D 12/18/16 [Last Taken 12/15/16] Multivitamins [Multivitamin (*)] 1 each PO DAILY 12/18/16 [Last Taken Unknown] Simvastatin [Zocor] 20 mg PO HS 12/18/16 [Last Taken 12/16/16] Valsartan [Diovan (*)] 80 mg PO HS 12/18/16 [Last Taken 12/16/16] Zolpidem Tartrate [Ambien 5MG (*)] 5 mg PO HS PRN 12/18/16 [Last Taken Unknown] predniSONE 2.5 mg PO DAILY 12/18/16 [Last Taken Unknown] Acetaminophen [Tylenol 325mg (*)] 650 mg PO Q4HRS PRN #0 tab 12/24/16 [Last Taken Unknown] Cyclobenzaprine [Flexeril 10 MG (*)] 10 mg PO TID@0800,1600,2200 tab 12/24/16 [ Last Taken Unknown] Diazepam [Valium 2 MG (*)] 2 mg PO Q6HRS tab 12/24/16 [Last Taken Unknown] Enoxaparin [Lovenox 40 MG (*)] 40 mg SC DAILY@0800 syr 12/24/16 [Last Taken Unknown] Fluticasone/Salmeter 250/50Mcg [Advair 250/50 (*)] 0 puffs IH BID disk [Last Taken Unknown] Lidocaine 5% [Lidoderm 5% Patch (*)] 1 ea TD DAILY@0800 patch 12/24/16 [Last Taken Unknown] Patch Removal 1 ea TD DAILY@2000 patch 12/24/16 [Last Taken Unknown] Polyethylene Glycol 3350 [Miralax 17 gm (*)] 17 gm PO DAILY PRN #0 pkt 12/24/16 [Last Taken Unknown] Sennosides/Docusate Sodium [Senokot-S] 1 - 2 tab PO BID@0800,1999 tab 12/24/16 [Last Taken Unknown] celeCOXIB [Celebrex (*)] 200 mg PO BID@799,1999 cap 12/24/16 [Last Taken Unknown] oxyCODONE CR [Oxycontin] 15 mg PO BID@799,1999 tab 12/24/16 [Last Taken Unknown] oxyCODONE IR [Oxycodone Ir (*)] 5 - 10 mg PO Q4HRS PRN #0 tab 12/24/16 [Last Taken Unknown] Discharge Medications: Refer to the Discharge Home Medication list for PRN reason. - Orders Services needed: Physical Therapy, Occupational Therapy Diet Recommendation: no restrictions on diet Diet Texture: Regular Texture Diet Activity/Weight Bearing Restrictions: per Neurosurgical team Additional: continue lovenox until more mobile / gonsalez was removed today/ monitor for urinary retention. May need gonsalez replaced. - Follow Up Care Current Providers and Referrals: Kar Draper MD [Primary Care Provider] - As per Instructions Jony Morales MD [Medical Doctor] -
[2016-12-24] MEDS: POLYETHYLENE GLYCOL 3350 17 GM PKT PO PRN (13:15)
--- NOTE | 2016-12-24 14:05 | GDS ---
[f rep st] DISCHARGE SUMMARY DISCHARGE DIAGNOSIS: 1. Acute back pain secondary to right hemicord compression at T11-T12. 2. Severe lumbar stenosis. 3. Spasms in the back area. 4. Hyponatremia. 5. Acute urinary retention. 6. Rheumatoid arthritis. 7. Hypertension. 8. Asthma. CONSULTATIONS: Dr. Morales with Neurosurgical services. Dr. Kerns with Neurology services. HISTORY OF PRESENT ILLNESS: Briefly, the patient is a 66-year-old male with a history of rheumatoid arthritis. He is treated with Plaquenil and methotrexate. He presented to the emergency room complaining of asymmetric right lower extremity weakness. He had a massage approximately 36 hours prior to coming to the ER. He had deep tissue work done on his back. He was having severe back pain and noticed that his right leg was becoming more weak. He had a thoracic MRI which noted that he had low thoracic cord compression at T11-T12 due to degenerative spinal stenosis with cord edema. In addition, during his stay he had a lumbar MRI which showed spinal neural foraminal stenosis most prominent at L4 and L5. He underwent decompressive laminectomy on December 19 for thoracic symptoms resembling Brown-Sequard phenomenon. He continued to have significant lumbar pain and back spasms. On December 21, he underwent a lumbar epidural steroid injection. Today, he is doing somewhat better. He continues to have weakness in his right leg. The plan is for him to go to inpatient rehabilitation for strengthening. Prior to his discharge, he was evaluated by Deja Smiley, neurosurgery surgery nurse practitioner. She spoke with him and said may require fusion surgery to help address his lumbar condition at a later time. HOSPITAL COURSE PER PROBLEM: 1. Acute back pain. He was noted to have a right hemicord compression at T11- T12. He is postop day #5 for T10-T11 laminectomy for decompression. 2. Severe lumbar stenosis. He is status post epidural steroid injection. 3. Spasms. He feels this is better. I will continue the Valium. 4. Hyponatremia. Resolved. 5. Acute urinary retention. His Jefferson was removed this morning. He may be retaining due to narcotics. The nursing staff is to do a bladder scan prior to his discharge. He may need the Jefferson reinserted. 6. Rheumatoid arthritis. Resumed his home medications. 7. Hypertension. He is stable. 8. Asthma. No signs or symptoms. DISCHARGE CONDITION: Stable. DISCHARGE VITAL SIGNS: Blood pressure is 122/80, respiratory rate is 16, pulse is 91, temperature is 36.8 Celsius, O2 sats on room air 93%. MEDICATIONS AT DISCHARGE: Please see the EMR. DISCHARGE INSTRUCTIONS: 1. Further followup with Dr. Morales. 2. Further followup with Dr. Draper. 3. If he develops fever, chills, worsening back pain, or becomes incontinent of urine or stool, to return to the ER. Greater than 30 minutes discharging and coordinating his care. /[id number]/MODL MTDD
[2016-12-24] MEDS ORDERED: SENNOSIDES/DOCUSATE SODIUM TAB PO SCH (20:00)
[2016-12-24] MEDS ORDERED: oxyCODONE CR 15 MG TAB PO SCH (20:00)
[2016-12-24] MEDS ORDERED: PATCH REMOVAL 1 EA PATCH TD SCH (20:00)
[2016-12-25] MEDS ORDERED: MULTIVITAMINS 1 EACH TAB PO SCH (08:00)
[2016-12-25] MEDS ORDERED: predniSONE 5 MG TAB PO SCH (08:00)
[2016-12-25] MEDS ORDERED: HYDROXYCHLOROQUINE SULFATE 200 MG TAB PO SCH (08:00)
[2016-12-25] MEDS ORDERED: LIDOCAINE 5% 1 EA PATCH TD SCH (08:00)
[2016-12-25] MEDS ORDERED: METHOTREXATE 2.5 MG TAB PO SCH (09:00)
== END 2016-12-24 14:39 | DRG 29 ==
LOC: INTOOBSV 22:56 → OBSVTOIN 23:26 → F3E 12-18 00:10 → F3N 12-18 17:12
PROVIDERS: ADMIT Hospitalist; ATTEND Internal Medicine
PROC: 4A1004G Monitoring of Central Nervous Electrical Activity, Intraoperative, Open Approach (ICD-10-PCS; principal; 2016-12-17)
PROC: 00NX0ZZ Release Thoracic Spinal Cord, Open Approach (ICD-10-PCS; principal; 2016-12-17)
PROC: 3E0S33Z Introduction of Anti-inflammatory into Epidural Space, Percutaneous Approach (ICD-10-PCS; 2016-12-21)
PROC: 3E0S3BZ Introduction of Anesthetic Agent into Epidural Space, Percutaneous Approach (ICD-10-PCS; 2016-12-21)
DX: G83.81 Brown-Sequard syndrome (principal); M47.14 Other spondylosis with myelopathy, thoracic region; M62.830 Muscle spasm of back; E87.1 Hypo-osmolality and hyponatremia; M48.06 Spinal stenosis, lumbar region; R33.9 Retention of urine, unspecified; M06.9 Rheumatoid arthritis, unspecified; I10 Essential (primary) hypertension; J45.909 Unspecified asthma, uncomplicated; E78.5 Hyperlipidemia, unspecified
CPT/HCPCS: 97110-GP; 97116-GP; 97161-GP; 97165-GO; 97530-GP; 97535-GO; A9585; G0378; G0463-PO; G8978-GP-CJ; G8979-GP-CI; G8987-GO-CK; G8988-GO-CJ; J0690; J1100; J1170; J1650; J2250; J2704; J3010; J3301; P9041; Q9967

== ENCOUNTER 2016-12-24 15:00 | Inpatient (IN) | payer OTHER ==
[2016-12-24] MEDS ORDERED: oxyCODONE IR 5 MG TAB PO ONE ×2 (16:09→17:53)
[2016-12-24] MEDS ORDERED: ASPIRIN 325 MG TAB PO PRN (16:22)
[2016-12-24] MEDS ORDERED: oxyCODONE IR 5 MG TAB PO PRN (16:22)
[2016-12-24] MEDS ORDERED: BISACODYL 10 MG SUPP PR PRN (16:24)
[2016-12-24] MEDS ORDERED: METHOTREXATE 2.5 MG TAB PO SCH (16:30)
[2016-12-24] MEDS: DIAZEPAM 2 MG TAB PO SCH (17:15)
[2016-12-24] MEDS: ACETAMINOPHEN 325 MG TAB PO PRN (17:16)
--- NOTE | 2016-12-24 17:36 | PDOREHIP ---
Admission [facility] - Admission - 3 Day Assessment Period Admission Date/Day 1: 12/24/16 Day 2: 12/25/16 Day 3: 12/26/16 - Active Diagnoses Comorbidities and Co-existing Conditions at Admission: 13610. None of the Above - Skin Conditions Unhealed Pressure Ulcer (1 or more/Stage 1 or >)-Admission: 0. No
--- NOTE | 2016-12-24 18:20 | GHP ---
[f rep st] HISTORY AND PHYSICAL POST ADMISSION PHYSICIAN EVALUATION AND REHABILITATION TREATMENT PLAN DATE OF ADMISSION: 12/24/2016 DATE OF EVALUATION: 12/24/2016. TIME OF EVALUATION: 1615. REFERRING FACILITY: [facility]. IMPAIRMENT GROUP: [id number]. DATE OF ONSET: 12/17/2016. CONSULTING PHYSICIANS: the hospitalist service and Neurology. REHABLITATION DIAGNOSIS: Spinal cord injury with right lower extremity weakness and back pain. ETIOLOGIC DIAGNOSIS: Other nontraumatic spinal cord dysfunction. DATE OF SURGERY: 12/19/2016. HISTORY OF PRESENT ILLNESS: This patient was admitted to [facility] on 12/17/2016. He had been seen the day before in the emergency department complaining of back pain and weakness in both legs. At that time, an MRI of the spine was obtained which showed multilevel degenerative disk disease and spinal stenosis. He was sent home initially with muscle relaxants and a referral to follow up with Neurosurgery. He came back the next day with much worsening symptoms. He had fallen and could not support his weight on his legs. At that time, a repeat MRI showed a low thoracic cord compression at T11-T12 due to degenerative spinal stenosis with cord edema. Subsequently an MRI during his stay was done which showed spinal neural foraminal stenosis most prominent at L4 and L5. He had a decompressive laminectomy of the thoracic spine on December 19, 2016, and he reports that he has had recovery in his motor strength in his legs since then; however, he has had significant lumbar pain and back spasms. On December 21, he had a lumbar epidural steroid injection which he says did not help. His pain was eventually controlled, first with a BAG LOADER hydromorphone IV and subsequently with oral long- acting and short-acting oxycodone as well as diazepam and cyclobenzaprine for spasms. He had acute urinary retention likely due to pain medications. Jefferson catheter was removed on the morning of hospital discharge today. He currently complains of recurrent pain across his low back in the lower lumbar area, which has been quite intense, and he is requesting another dose of oxycodone. Pain does not radiate down his legs. His last dose was approximately 3-1/2 hours ago. OTHER STUDIES AND LABS DURING HIS STAY: CBC was essentially within normal limits. Coagulation studies were normal. Comprehensive metabolic profile on when he was admitted showed a slightly low carbon dioxide. He appeared dehydrated with a BUN of 28 and a creatinine of 0.9. His blood sugar was elevated, but it was not fasting. Liver function tests were completely within normal limits. Subsequent basic metabolic profiles consistently showed elevated glucoses in the 102-119 range. Otherwise, overall renal function and electrolytes were within normal limits. Sodium was low on 12/21/2016 at 132, but it subsequently normalized. PRECAUTIONS: He is a fall risk. ACTIVE COMORBIDITIES: He has no active type 1, type 2, or type 3 comorbidities. PAST MEDICAL HISTORY: 1. Rheumatoid arthritis which has been very well controlled currently on low doses of medications. 2. Asthma. 3. Hypertension. PAST SURGICAL HISTORY: 1. Prostate biopsy. 2. Surgical repair of a bladder perforation as a complication of the prostate biopsy. 3. Right knee replacement. 4. Repair of a bowel obstruction. ALLERGIES: There are no known drug allergies. PRE-HOSPITAL MEDICATIONS: Valsartan, simvastatin, Advair, albuterol, Voltaren, hydroxychloroquine, Excedrin, and methotrexate. ADMISSION MEDICATIONS: 1. Acetaminophen 650 mg p.o. q.4 hours p.r.n. 2. Aspirin 325 mg p.o. daily p.r.n. 3. Celecoxib 200 mg p.o. b.i.d. 4. Cyclobenzaprine 10 mg p.o. t.i.d. 5. Diazepam 2 mg p.o. q.6 hours. 6. Enoxaparin 40 mg subcutaneous daily. 7. Fluticasone/salmeterol 1 puff b.i.d. 8. Hydroxychloroquine 200 mg p.o. daily. 9. Lidocaine patch to the low back. 10. Methotrexate 2.5 mg p.o. q.10 days. Last dose December 15, 2016. 11. Oxycodone continuous release 15 mg p.o. b.i.d. 12. Oxycodone immediate release 5-10 mg p.o. q.4 hours p.r.n. 13. Polyethylene glycol 17 g p.o. daily p.r.n. 14. Prednisone 2.5 mg p.o. daily. 15. Senna/docusate 1-2 tabs p.o. b.i.d. 16. Simvastatin 20 mg p.o. q.h.s. 17. Valsartan 80 mg p.o. q.h.s. 18. Zolpidem 5 mg p.o. q.h.s. p.r.n. FAMILY HISTORY: Noncontributory. PSYCHOSOCIAL HISTORY: He is a nonsmoker. He drinks approximately 3 beers several nights a week. He does not use any other substances of abuse. His son is a third-year neurology resident at the [employer]. He lives alone in a 3-level house. Bed and bath are upstairs. 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 REVIEW OF SYSTEMS: He denies constipation and reports he had 3 good bowel movements today. He has urinary retention and some discomfort. He currently has quite a bit of pain and is asking for his pain medications. He denies cough or dyspnea. He denies nausea or vomiting. He denies dysuria. He denies headache, vision changes, or difficulty swallowing. The numbness that he had on the right side of his body and his right leg has largely resolved. He continues to have some weakness in the legs. Other than that, a 10-point review of systems is negative. PHYSICAL EXAM: VITALS: This morning in the hospital his blood pressure was 122 /80, his heart rate was 91, his respiratory rate was 16, his oxygen saturation was 93% on room air, his temperature was 36.8 degrees centigrade. GENERAL: This is a well-nourished, well-developed man, sitting in a chair, appearing somewhat uncomfortable but cooperative. HEENT: Extraocular movements are intact. Pupils are equal, round, and reactive to light. Mucous membranes are moist. Dentition is in good condition. NECK: Supple. HEART: Regular rate and rhythm with no murmurs, rubs, or gallops. LUNGS: Clear to auscultation bilaterally. ABDOMEN: Soft, nontender, nondistended with normoactive bowel sounds and no hepatosplenomegaly. EXTREMITIES: There is no cyanosis, clubbing , or edema. NEUROLOGIC: He is alert and oriented x3. Cranial nerves 2-12 are grossly intact. Full motor and sensory exam was not completed due to his pain; however, sensation was intact to light touch. Deep tendon reflexes were 2+ bilaterally at the Achilles tendons and biceps tendons. He had no upper extremity weakness. SKIN: He has an incision over his lower thoracic spine which is well approximated and apparently glued or with internal stitches. There was no drainage or erythema. There was some bulging under the proximal end of the incision which might be consistent with spinal hardware. There was a blister which appeared to have drained distal and to the right of the incision , possibly due to tape or removal of tape. CURRENT LEVEL OF FUNCTION: Per the preadmission screen. Regarding diet, feeding, and swallowing, he is on a regular diet. Regarding grooming, he accomplished this with minimal assistance and voice cues. For bathing, he required moderate assistance and voice cues for spinal precautions and for pacing. He had poor carryover. Regarding dressing, he required moderate assist with voice cues. Bladder and bowel were noted to be continent. Bed mobility required moderate assistance. Transfers required minimal assistance. He complained of back spasms. He used a front-wheeled walker. Regarding balance, seated he was standby assistance, and standing he required moderate assistance. His endurance was fair. He was able to ambulate 175 feet with contact guard and voice cuing for heel strike on the right and right foot clearance during the swing phase. Communication and cognition were normal. He was noted to have back spasms with activity. IMPRESSION: The patient is a 66-year-old man who has had an acute nontraumatic spinal cord injury in the lower thoracic region. He had surgery with decompressive laminectomy. Subsequent to that, he has had significant pain, more referable to the lumbar spine. He has had urinary retention with placement of a Jefferson catheter which was removed this morning. He had an epidural steroid injection which he does not feel was helpful. He continues to have right leg weakness which impairs his ability to ambulate. He is appropriate for inpatient rehabilitation where he will receive therapy with physical and occupational therapies to optimize his mobility and activities of daily living. He will have a speech therapy evaluation regarding cognition. He will benefit from nursing care for bowel and bladder, skin integrity, medication management, and fall risk. He will benefit from the care of a physician regarding pain management, infection risk, risk for neurologic deterioration, and comorbid asthma and hypertension as well as acute urinary retention. His goal is to return home with supportive services and assistance from friends and family. For a safe discharge, it is anticipated that he will achieve independence with grooming and bed mobility, modified independence for transfers , toileting, bathing, dressing, and ambulation with the least restrictive device. It is likely he will require assistance for shopping and household management. His pain will need to be controlled to allow function regarding ADLs and mobility. He will receive therapy with physical therapy, occupational therapy, and speech and language pathology for 60 minutes per day for each discipline on 5-7 days of the week. His expected duration of stay is 5-7 days. It is anticipated that upon discharge, he will continue to benefit from home health services, including an aide, occupational therapy, and physical therapy. ASSESSMENT AND PLAN: 1. Right leg weakness status post nontraumatic spinal cord injury at the T11- T12 region with decompressive laminectomy on 12/19/16. Physical and occupational therapy to optimize his mobility and activities of daily living. 2. Back pain, likely referable to the lumbar spine. Continue pain management protocol from the hospital including oxycodone continuous release 15 mg b.i.d., oxycodone immediate release 5-10 mg q.3 hours p.r.n., scheduled cyclobenzaprine 10 mg t.i.d., and diazepam 2 mg q.6 hours. Pain will be assessed, and medications will be adjusted as needed. 3. Lumbar spinal stenosis. He will consider having elective surgery in the future after he has recovered from his current condition. 4. Urinary retention. He reports history of enlarged prostate and a biopsy, but has not had lower urinary tract symptoms in the past. He is on multiple medications which can affect bladder emptying including oxycodone and cyclobenzaprine. We will start tamsulosin 4 mg q.h.s. today. He will have another attempt at voiding. His initial postvoid residual was over 600. If he has an elevated residual on his next try, we will place a Jefferson catheter and continue the tamsulosin. Possibly pain medications can be tapered over the next several days, and between the tamsulosin and a possible taper of opiates and/or cyclobenzaprine, it may be worthwhile to attempt a voiding trial in several days. 5. Asthma has been well controlled. Continue his current medications. 6. Rheumatoid arthritis has been well controlled,. Continue his current medications. /[id number]/MODL MTDD
[2016-12-24] MEDS: oxyCODONE IR 5 MG TAB PO PRN (18:30)
[2016-12-24] MEDS ORDERED: NON-FORMULARY NEW DRUG (Simvastatin [Zocor] 20 MG) PO SCH (21:00)
[2016-12-24] MEDS ORDERED: VALSARTAN 80 MG TAB PO SCH (21:00)
[2016-12-24] MEDS: VALSARTAN 40 MG TAB PO SCH (21:02)
[2016-12-24] MEDS: oxyCODONE CR 15 MG TAB PO SCH (21:03)
[2016-12-24] MEDS: SENNOSIDES/DOCUSATE SODIUM TAB PO SCH (21:03)
[2016-12-24] MEDS: TAMSULOSIN HCL 0.4 MG CAP PO SCH (21:04)
[2016-12-24] MEDS: PATCH REMOVAL 1 EA PATCH TD SCH (21:04)
[2016-12-24] MEDS: FLUTICASONE/SALMETER 250/50MCG DISKUS IH SCH (21:04)
[2016-12-24] MEDS: CYCLOBENZAPRINE 10 MG TAB PO SCH (21:07)
[2016-12-25] MEDS: DIAZEPAM 2 MG TAB PO SCH ×4 (00:52→17:19)
[2016-12-25] MEDS: oxyCODONE IR 5 MG TAB PO PRN ×4 (05:02→17:19)
[2016-12-25] MEDS: CYCLOBENZAPRINE 10 MG TAB PO SCH (07:42)
[2016-12-25] MEDS: ENOXAPARIN 40 MG/0.4 ML SYR SC SCH (07:42)
[2016-12-25] MEDS: LIDOCAINE 5% 1 EA PATCH TD SCH (07:43)
[2016-12-25] MEDS: SENNOSIDES/DOCUSATE SODIUM TAB PO SCH ×2 (07:44→20:02)
[2016-12-25] MEDS: POLYETHYLENE GLYCOL 3350 17 GM PKT PO PRN (07:51)
[2016-12-25] MEDS: oxyCODONE CR 15 MG TAB PO SCH ×2 (07:51→20:02)
[2016-12-25] MEDS: HYDROXYCHLOROQUINE SULFATE 200 MG TAB PO SCH (08:42)
[2016-12-25] MEDS: predniSONE 5 MG TAB PO SCH (08:42)
[2016-12-25] MEDS: MULTIVITAMINS 1 EACH TAB PO SCH (08:42)
[2016-12-25] MEDS: ATORVASTATIN CALCIUM 10 MG TAB PO SCH (08:42)
[2016-12-25] MEDS: METHOTREXATE 2.5 MG TAB PO SCH (08:50)
[2016-12-25] MEDS: FLUTICASONE/SALMETER 250/50MCG DISKUS IH SCH (08:51)
[2016-12-25] MEDS ORDERED: NON-FORMULARY NEW DRUG (Prednisone [Prednisone] 2.5 MG) PO SCH (09:00)
--- NOTE | 2016-12-25 09:28 | SOAPPROG ---
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 Physical and occupational therapy to optimize his mobility and activities of daily living. * Lumbar back pain, likely referable to the lumbar spine, not c/w neuropathy. Med changes today 12/25/16: increase oxycodone continuous release from 15 mg b.i.d to 25 mg BID. Continue oxycodone immediate release 5-15 mg q.3 hours p.r.n.D/C cyclobenzaprine 10 mg t.i.d., If pain control is improved, plan to D /C diazepam 2 mg q.6 hours. * Lumbar spinal foraminal stenosis. He will consider having elective surgery in the future after he has recovered from his current condition. * Urinary retention. He reports history of enlarged prostate and a biopsy, but has not had lower urinary tract symptoms in the past. He is on multiple medications which can affect bladder emptying including oxycodone and cyclobenzaprine. We will start tamsulosin 4 mg q.h.s. today. Jefferson catheter was placed 12/24/16. With D/C of cyclobenzaprine, consider voiding trial in several days. * Asthma has been well controlled. Continue his current medications. * Rheumatoid arthritis has been well controlled,. Continue his current medications. 12/25/16 10:01 Subjective: Slept OK. At 0400 got up into a chair, which felt better than staying in bed. No radiation of pain down legs. No f/c, cough/dyspnea. Objective: Vital Signs Temp Pulse Resp BP Pulse Ox 36.6 C 61 16 117/66 95 12/25/16 06:08 12/25/16 06:08 12/25/16 06:08 12/25/16 06:08 12/25/16 06:08 12/24/16 12/25/16 12/26/16 05:59 05:59 05:59 Intake Total 500 Output Total 2370 Balance -1870 Physical Exam - Physical Exam General Appearance: WD/WN, alert, no apparent distress Respiratory: normal breath sounds, No crackles, No rhonchi, No wheezing Cardiac/Chest: regular rate, rhythm, No edema Back: Other (NT lumbar region) Skin: normal color, warm/dry Neuro/Psych: alert, normal mood/affect, oriented x 3, abnormal gait (Antalgic with FWW) ICD10 Worksheet Patient Problems: Problems Problem Status Onset Leg weakness Acute
[2016-12-25] MEDS: TAMSULOSIN HCL 0.4 MG CAP PO SCH (21:04)
[2016-12-25] MEDS: VALSARTAN 40 MG TAB PO SCH (21:04)
[2016-12-26] MEDS: DIAZEPAM 2 MG TAB PO SCH ×5 (00:01→23:57)
[2016-12-26] MEDS: FLUTICASONE/SALMETER 250/50MCG DISKUS IH SCH ×3 (06:01→21:32)
[2016-12-26] MEDS: oxyCODONE IR 5 MG TAB PO PRN ×3 (06:03→16:08)
[2016-12-26] MEDS: PATCH REMOVAL 1 EA PATCH TD SCH ×2 (06:08→21:33)
[2016-12-26] MEDS: ACETAMINOPHEN 325 MG TAB PO PRN (07:36)
[2016-12-26] MEDS ORDERED: MAGNESIUM HYDROXIDE 30 ML UDCUP PO PRN (08:14)
[2016-12-26] MEDS: ATORVASTATIN CALCIUM 10 MG TAB PO SCH (08:16)
[2016-12-26] MEDS: ENOXAPARIN 40 MG/0.4 ML SYR SC SCH (08:16)
[2016-12-26] MEDS: HYDROXYCHLOROQUINE SULFATE 200 MG TAB PO SCH (08:17)
[2016-12-26] MEDS: LIDOCAINE 5% 1 EA PATCH TD SCH (08:17)
[2016-12-26] MEDS: oxyCODONE CR 15 MG TAB PO SCH ×2 (08:17→20:13)
[2016-12-26] MEDS: MULTIVITAMINS 1 EACH TAB PO SCH (08:17)
[2016-12-26] MEDS: predniSONE 5 MG TAB PO SCH (08:18)
[2016-12-26] MEDS: POLYETHYLENE GLYCOL 3350 17 GM PKT PO PRN (08:18)
[2016-12-26] MEDS: SENNOSIDES/DOCUSATE SODIUM TAB PO SCH ×2 (08:18→20:13)
--- NOTE | 2016-12-26 09:46 | SOAPPROG ---
SOAP Progress Note Assessment/Plan: Assessment: Assessment/Plan: Assessment: * Right leg weakness status post nontraumatic spinal cord injury at the T11-T12 region with decompressive laminectomy on 12/19/16. Physical and occupational therapy to optimize his mobility and activities of daily living. * Lumbar back pain, likely referable to the lumbar spine, not c/w neuropathy. Med changes today 12/25/16: increase oxycodone continuous release from 15 mg b.i.d to 25 mg BID. IMPROVED THIS AM. HE HAS BEEN USING A HEATING PAD AND HE WAS ADVISED TO USE ICE INSTEAD FOR 20 MINUTES SEVERAL TIMES PER DAY. Continue oxycodone immediate release 5-15 mg q.3 hours p.r.n.D/C cyclobenzaprine 10 mg t.i.d., If pain control is improved, plan to D/C diazepam 2 mg q.6 hours. * Lumbar spinal foraminal stenosis. He will consider having elective surgery in the future after he has recovered from his current condition. * Urinary retention. He reports history of enlarged prostate and a biopsy, but has not had lower urinary tract symptoms in the past. He is on multiple medications which can affect bladder emptying including oxycodone and cyclobenzaprine. We will start tamsulosin 4 mg q.h.s. today. Alarcon catheter was placed 12/24/16. With D/C of cyclobenzaprine, consider voiding trial in several days. WILL TRY D/CING ALARCON LATER TODAY OR TOMORROW. * Asthma has been well controlled. Continue his current medications. * Rheumatoid arthritis has been well controlled,. Continue his current medications. Subjective: No new complaints. Reports his pain is well controlled. He is using heating pad to low back region. He denies significant LBP or LE pain. Objective: Vital Signs Temp Pulse Resp BP Pulse Ox 36.7 C 64 16 112/64 94 12/26/16 06:32 12/26/16 06:32 12/26/16 06:32 12/26/16 06:32 12/26/16 06:32 12/25/16 12/26/16 12/27/16 05:59 05:59 05:59 Intake Total 500 1180 Output Total 2370 2500 Balance -1870 -1320 Physical Exam - Physical Exam General Appearance: WD/WN, alert, no apparent distress Neck: non-tender Respiratory: lungs clear, normal breath sounds Cardiac/Chest: regular rate, rhythm, No edema Abdomen: normal bowel sounds, non-tender, soft Back: Normal inspection (No paralumbar spasms) Skin: normal color, warm/dry, other (Lumbar spine incision healing well. No drainage. No erythema) ICD10 Worksheet Patient Problems: Problems Problem Status Onset Leg weakness Acute
[2016-12-26] MEDS: VALSARTAN 40 MG TAB PO SCH (21:27)
[2016-12-26] MEDS: TAMSULOSIN HCL 0.4 MG CAP PO SCH (21:27)
[2016-12-27] MEDS: oxyCODONE IR 5 MG TAB PO PRN ×5 (06:10→18:10)
[2016-12-27] MEDS: ACETAMINOPHEN 325 MG TAB PO PRN ×3 (06:10→16:55)
[2016-12-27] MEDS: DIAZEPAM 2 MG TAB PO SCH ×3 (06:10→16:54)
[2016-12-27] MEDS: POLYETHYLENE GLYCOL 3350 17 GM PKT PO PRN (08:23)
[2016-12-27] MEDS: LIDOCAINE 5% 1 EA PATCH TD SCH (08:24)
[2016-12-27] MEDS: SENNOSIDES/DOCUSATE SODIUM TAB PO SCH ×2 (08:24→20:59)
[2016-12-27] MEDS: ATORVASTATIN CALCIUM 10 MG TAB PO SCH (08:24)
[2016-12-27] MEDS: FLUTICASONE/SALMETER 250/50MCG DISKUS IH SCH ×2 (08:24→20:57)
[2016-12-27] MEDS: ENOXAPARIN 40 MG/0.4 ML SYR SC SCH (08:24)
[2016-12-27] MEDS: HYDROXYCHLOROQUINE SULFATE 200 MG TAB PO SCH (08:25)
[2016-12-27] MEDS: MULTIVITAMINS 1 EACH TAB PO SCH (08:25)
[2016-12-27] MEDS: oxyCODONE CR 15 MG TAB PO SCH ×2 (08:26→20:59)
[2016-12-27] MEDS: predniSONE 5 MG TAB PO SCH (08:26)
--- NOTE | 2016-12-27 11:15 | SOAPPROG ---
SOAP Progress Note Assessment/Plan: Assessment: Assessment/Plan: Assessment: * Right leg weakness status post nontraumatic spinal cord injury at the T11-T12 region with decompressive laminectomy on 12/19/16. Physical and occupational therapy to optimize his mobility and activities of daily living. * Lumbar back pain, likely referable to the lumbar spine, not c/w neuropathy. Med changes today 12/25/16: increase oxycodone continuous release from 15 mg b.i.d to 25 mg BID. IMPROVED THIS AM. HE HAS BEEN USING A HEATING PAD AND HE WAS ADVISED TO USE ICE INSTEAD FOR 20 MINUTES SEVERAL TIMES PER DAY. Continue oxycodone immediate release 5-15 mg q.3 hours p.r.n.D/C cyclobenzaprine 10 mg t.i.d., If pain control is improved, plan to D/C diazepam 2 mg q.6 hours. * Lumbar spinal foraminal stenosis. He will consider having elective surgery in the future after he has recovered from his current condition. * Urinary retention. He reports history of enlarged prostate and a biopsy, but has not had lower urinary tract symptoms in the past. He is on multiple medications which can affect bladder emptying including oxycodone and cyclobenzaprine. We will start tamsulosin 4 mg q.h.s. today. Gonsalez catheter was placed 12/24/16. With D/C of cyclobenzaprine, consider voiding trial in several days. Tried clamping gonsalez yesterday. HE REFUSES TO HAVE GONSALEZ D/C'D HE WANTS GUARANTEE IT WONT HAVE TO BE RE-INSERTED. * Asthma has been well controlled. Continue his current medications. * Rheumatoid arthritis has been well controlled,. Continue his current medications. 12/27/16 11:13 Subjective: He refuses to have gonsalez d/c'd secondary to wanting a guarantee that it won't have to be re-inserted. Objective: Vital Signs Temp Pulse Resp BP Pulse Ox 36.9 C 68 16 104/65 94 12/27/16 06:25 12/27/16 06:25 12/27/16 06:25 12/27/16 06:25 12/27/16 06:25 12/26/16 12/27/16 12/28/16 05:59 05:59 05:59 Intake Total 1180 1620 420 Output Total 2500 2650 Balance -1320 -1030 420 Physical Exam - Physical Exam General Appearance: WD/WN, alert, no apparent distress Respiratory: chest non-tender, lungs clear, normal breath sounds Cardiac/Chest: No edema, No JVD Abdomen: normal bowel sounds, non-tender, soft, other (no suprapubic tenderness) Male Genitalia: other (gonsalez catheter in place) Neuro/Psych: alert, normal mood/affect, oriented x 3, abnormal gait (decreased step and stride length with FWW. Good gait mechanics) ICD10 Worksheet Patient Problems: Problems Problem Status Onset Leg weakness Acute
[2016-12-27] MEDS: TAMSULOSIN HCL 0.4 MG CAP PO SCH (20:59)
[2016-12-27] MEDS: PATCH REMOVAL 1 EA PATCH TD SCH (21:04)
[2016-12-27] MEDS: VALSARTAN 40 MG TAB PO SCH (21:10)
[2016-12-28] MEDS: ACETAMINOPHEN 325 MG TAB PO PRN ×2 (04:09→20:03)
[2016-12-28] MEDS ORDERED: NYSTATIN SUSP 500000 UNIT/5 ML UDCUP ONE (06:13)
[2016-12-28] MEDS: DIAZEPAM 2 MG TAB PO SCH ×2 (07:33→07:36)
[2016-12-28] MEDS: oxyCODONE IR 5 MG TAB PO PRN ×2 (07:45→14:10)
[2016-12-28] MEDS: ATORVASTATIN CALCIUM 10 MG TAB PO SCH (07:53)
[2016-12-28] MEDS: ENOXAPARIN 40 MG/0.4 ML SYR SC SCH (07:53)
[2016-12-28] MEDS: FLUTICASONE/SALMETER 250/50MCG DISKUS IH SCH ×2 (07:54→20:10)
[2016-12-28] MEDS: LIDOCAINE 5% 1 EA PATCH TD SCH (07:54)
[2016-12-28] MEDS: HYDROXYCHLOROQUINE SULFATE 200 MG TAB PO SCH (07:54)
[2016-12-28] MEDS: MULTIVITAMINS 1 EACH TAB PO SCH (07:55)
[2016-12-28] MEDS: oxyCODONE CR 15 MG TAB PO SCH ×2 (07:56→20:05)
[2016-12-28] MEDS: predniSONE 5 MG TAB PO SCH (07:56)
[2016-12-28] MEDS: SENNOSIDES/DOCUSATE SODIUM TAB PO SCH ×2 (07:57→20:02)
[2016-12-28] MEDS: POLYETHYLENE GLYCOL 3350 17 GM PKT PO PRN (07:57)
--- NOTE | 2016-12-28 09:49 | SOAPPROG ---
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 Initial FIM 53 plus cognitive numbers not yet calculates so likely in 80s. Walked 160' SBA/CGA FWW. Did 6 steps CGA. Decreased strength and proprioception RLE. Needs cues for spinal precautions. Continue Physical and occupational therapy to optimize his mobility and activities of daily living. * Lumbar back pain, likely referable to the lumbar spine. Med changes today : increase oxycodone continuous release from 15 mg b.i.d to 25 mg BID. Continue oxycodone immediate release 5-15 mg q.3 hours p.r.n.D/C cyclobenzaprine 10 mg t.i.d. D/C diazepam 12/28/16. Has been taking less than 4 weeks; unlikely to have withdrawal syndrome. Consider trial of gabapentin. * Lumbar spinal foraminal stenosis. He will consider having elective surgery in the future after he has recovered from his current condition. * Urinary retention. He reports history of enlarged prostate and a biopsy, but has not had lower urinary tract symptoms in the past. He is on multiple medications which can affect bladder emptying including oxycodone and cyclobenzaprine. We will start tamsulosin 4 mg q.h.s. today. Jefferson catheter was placed 12/24/16. With D/C of cyclobenzaprine, consider voiding trial in several days. * Asthma has been well controlled. Continue his current medications. * Rheumatoid arthritis has been well controlled,. Continue his current medications. Attended staffing, 15 min. D/w case mgmt, nursing, pharmacy, yeast cake cutter, PT, OT. Plan for discharge home 01/05/17. Sons alternating weeks from out of town to assist. 12/28/16 13:46 Subjective: Pain is adequately controlled, participating in therapy. Unsure whether he actually has muscle spasm. Feels "foggy" and with difficult with memory. Objective: Vital Signs Temp Pulse Resp BP Pulse Ox 36.9 C 67 17 119/76 96 12/28/16 06:27 12/28/16 06:27 12/28/16 06:27 12/28/16 06:27 12/28/16 06:27 12/27/16 12/28/1612/29/17 05:59 05:59 05:59 Intake Total 1620 910 Output Total 2650 0510 Balance -0 -2039 - Time Spent With Patient Time Spent With Patient: Greater than 35 minutes floor time today, including more than 50% of time in coordination of care during staffing, and counseling patient. Physical Exam - Physical Exam General Appearance: WD/WN, alert, no apparent distress Respiratory: normal breath sounds, No crackles, No rhonchi, No wheezing Cardiac/Chest: regular rate, rhythm Back: Other (NT lumbar ragion except mildly tender on R) Neuro/Psych: no motor/sensory deficits, alert, normal mood/affect, oriented x 3 ICD10 Worksheet Patient Problems: Problems Problem Status Onset Leg weakness Acute
[2016-12-28] MEDS: VALSARTAN 40 MG TAB PO SCH (20:00)
[2016-12-28] MEDS: TAMSULOSIN HCL 0.4 MG CAP PO SCH (20:01)
[2016-12-28] MEDS: PATCH REMOVAL 1 EA PATCH TD SCH (22:22)
[2016-12-29] MEDS: ACETAMINOPHEN 325 MG TAB PO PRN ×2 (05:48→17:49)
[2016-12-29] MEDS: LIDOCAINE 5% 1 EA PATCH TD SCH (07:31)
[2016-12-29] MEDS: ENOXAPARIN 40 MG/0.4 ML SYR SC SCH (07:32)
[2016-12-29] MEDS: oxyCODONE CR 15 MG TAB PO SCH (07:33)
[2016-12-29] MEDS: predniSONE 5 MG TAB PO SCH (07:34)
[2016-12-29] MEDS: SENNOSIDES/DOCUSATE SODIUM TAB PO SCH ×2 (07:34→20:17)
[2016-12-29] MEDS: ATORVASTATIN CALCIUM 10 MG TAB PO SCH (07:34)
[2016-12-29] MEDS: MULTIVITAMINS 1 EACH TAB PO SCH (07:35)
[2016-12-29] MEDS: HYDROXYCHLOROQUINE SULFATE 200 MG TAB PO SCH (07:35)
[2016-12-29] MEDS: FLUTICASONE/SALMETER 250/50MCG DISKUS IH SCH ×2 (07:39→20:19)
--- NOTE | 2016-12-29 15:30 | SOAPPROG ---
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 Initial FIM 90. Walked 160' SBA/CGA FWW. Did 6 steps CGA. Decreased strength and proprioception RLE. Needs cues for spinal precautions. Continue Physical and occupational therapy to optimize his mobility and activities of daily living. * Lumbar back pain, likely referable to the lumbar spine. Discussed pain management: will decrease OxyCR to 15 mg QAM and 10 mg QHS starting 12/29/16; continue OxyIR 5 - 15 mg Q 3 hr PRN. D/C'd cyclobenzaprine 10 mg t.i.d. D/C' d diazepam 12/28/16; no withdrawal symptoms noted. Consider trial of gabapentin. * Urinary retention. He reports history of enlarged prostate and a biopsy, but has not had lower urinary tract symptoms in the past. He is on multiple medications which can affect bladder emptying including oxycodone and cyclobenzaprine. We will start tamsulosin 4 mg q.h.s. today. Jefferson catheter was placed 12/24/16. With D/C of cyclobenzaprine and opiate taper, repeat voiding trial 01/01/17. * Lumbar spinal foraminal stenosis. He will consider having elective surgery in the future after he has recovered from his current condition. * Asthma has been well controlled. Continue his current medications. * Rheumatoid arthritis has been well controlled,. Continue his current medications. Plan for discharge home 01/05/17. Sons alternating weeks from out of town to assist. 12/29/16 15:25 Subjective: No complaints. Pain adequately controlled. Used 10 mg OxyCR last night. Was awake from 0100 to 0300 but not due to pain; more due to worry about how much recovery he will have. Objective: Vital Signs Temp Pulse Resp BP Pulse Ox 36.8 C 77 16 122/73 H 94 12/29/16 05:51 12/29/16 05:51 12/29/16 05:51 12/29/16 05:51 12/29/16 05:51 12/28/16 12/29/16 12/30/16 05:59 05:59 05:59 Intake Total 986 917 8299 Output Total 9870 1875 Balance -2040 -1285 1118 Physical Exam - Physical Exam General Appearance: WD/WN, alert, no apparent distress Respiratory: No respiratory distress, No accessory muscle use Skin: normal color, warm/dry Neuro/Psych: alert, normal mood/affect, oriented x 3, abnormal gait (Slight deficit to flexion of R foot with forward swing but no foot drag. Walks with FWW, SBA by PT.) ICD10 Worksheet Patient Problems: Problems Problem Status Onset Leg weakness Acute
[2016-12-29] MEDS: TAMSULOSIN HCL 0.4 MG CAP PO SCH (20:16)
[2016-12-29] MEDS: VALSARTAN 40 MG TAB PO SCH (20:16)
[2016-12-29] MEDS: PATCH REMOVAL 1 EA PATCH TD SCH (22:47)
[2016-12-30] MEDS: ACETAMINOPHEN 325 MG TAB PO PRN (06:01)
[2016-12-30] MEDS: oxyCODONE CR 15 MG TAB PO SCH (07:57)
[2016-12-30] MEDS: HYDROXYCHLOROQUINE SULFATE 200 MG TAB PO SCH (07:57)
[2016-12-30] MEDS: LIDOCAINE 5% 1 EA PATCH TD SCH (07:57)
[2016-12-30] MEDS: MULTIVITAMINS 1 EACH TAB PO SCH (07:58)
[2016-12-30] MEDS: predniSONE 5 MG TAB PO SCH (07:58)
[2016-12-30] MEDS: ATORVASTATIN CALCIUM 10 MG TAB PO SCH (07:58)
[2016-12-30] MEDS: SENNOSIDES/DOCUSATE SODIUM TAB PO SCH ×2 (07:59→20:38)
[2016-12-30] MEDS: ENOXAPARIN 40 MG/0.4 ML SYR SC SCH (07:59)
[2016-12-30] MEDS: FLUTICASONE/SALMETER 250/50MCG DISKUS IH SCH ×2 (08:00→22:15)
--- NOTE | 2016-12-30 09:52 | SOAPPROG ---
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 Initial FIM 90. Walked 160' SBA/CGA FWW. Did 6 steps CGA. Decreased strength and proprioception RLE. Needs cues for spinal precautions. Advancing to I in room today 12/30/16. Continue Physical and occupational therapy to optimize his mobility and activities of daily living. * Lumbar back pain, likely referable to the lumbar spine. Discussed pain management: will decrease OxyCR to 15 mg QAM and 10 mg QHS starting 12/29/16; change evening OxyCR to PRN starting 12/30/16 continue OxyIR 5 - 15 mg Q 3 hr PRN. D/C'd cyclobenzaprine 10 mg t.i.d. D/C'd diazepam 12/28/16; no withdrawal symptoms noted. Consider trial of gabapentin. * Urinary retention. He reports history of enlarged prostate and a biopsy, but has not had lower urinary tract symptoms in the past. He is on multiple medications which can affect bladder emptying including oxycodone and cyclobenzaprine. We will start tamsulosin 4 mg q.h.s. today. Jefferson catheter was placed 12/24/16. With D/C of cyclobenzaprine and opiate taper, repeat voiding trial 01/01/17. * Lumbar spinal foraminal stenosis. He will consider having elective surgery in the future after he has recovered from his current condition. * Asthma has been well controlled. Continue his current medications. * Rheumatoid arthritis has been well controlled,. Continue his current medications. Plan for discharge home 01/05/17. Sons alternating weeks from out of town to assist. 12/30/16 09:51 Subjective: No complaints. Slept well. Not in pain. Wants to reduce opiate use further: plans to not take OxyCR 10 mg tonight. Objective: Vital Signs Temp Pulse Resp BP Pulse Ox 36.7 C 63 16 106/64 95 12/30/16 06:55 12/30/16 06:55 12/30/16 06:55 12/30/16 06:55 12/30/16 06:55 12/29/16 12/30/16 12/31/16 05:59 05:59 05:59 Intake Total 590 1754 Output Total 9852 465 Balance -1285 904 Physical Exam - Physical Exam General Appearance: WD/WN, alert, no apparent distress Respiratory: No respiratory distress, No accessory muscle use Skin: normal color, warm/dry Neuro/Psych: no motor/sensory deficits, alert, normal mood/affect, oriented x 3 ICD10 Worksheet Patient Problems: Problems Problem Status Onset Leg weakness Acute
[2016-12-30] MEDS: TAMSULOSIN HCL 0.4 MG CAP PO SCH (20:38)
[2016-12-30] MEDS: VALSARTAN 40 MG TAB PO SCH (20:38)
[2016-12-30] MEDS: PATCH REMOVAL 1 EA PATCH TD SCH (22:24)
[2016-12-31] MEDS: oxyCODONE IR 5 MG TAB PO PRN (06:05)
[2016-12-31] MEDS: ACETAMINOPHEN 325 MG TAB PO PRN ×2 (06:09→21:23)
[2016-12-31] MEDS: ATORVASTATIN CALCIUM 10 MG TAB PO SCH (09:03)
[2016-12-31] MEDS: MULTIVITAMINS 1 EACH TAB PO SCH (09:03)
[2016-12-31] MEDS: predniSONE 5 MG TAB PO SCH (09:03)
[2016-12-31] MEDS: SENNOSIDES/DOCUSATE SODIUM TAB PO SCH ×2 (09:03→20:08)
[2016-12-31] MEDS: ENOXAPARIN 40 MG/0.4 ML SYR SC SCH (09:04)
[2016-12-31] MEDS: HYDROXYCHLOROQUINE SULFATE 200 MG TAB PO SCH (09:04)
[2016-12-31] MEDS: FLUTICASONE/SALMETER 250/50MCG DISKUS IH SCH ×2 (09:05→20:10)
[2016-12-31] MEDS: LIDOCAINE 5% 1 EA PATCH TD SCH (09:05)
[2016-12-31] MEDS ORDERED: oxyCODONE CR 15 MG TAB PO SCH (11:02)
--- NOTE | 2016-12-31 11:48 | SOAPPROG ---
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 Initial FIM 90. Walked 160' SBA/CGA FWW. Did 6 steps CGA. Decreased strength and proprioception RLE. Needs cues for spinal precautions. Advanced to I in room 12/30/16. Continue Physical and occupational therapy to optimize his mobility and activities of daily living. * Lumbar back pain, likely referable to the lumbar spine. Discussed pain management: will decrease OxyCR to 15 mg QAM and 10 mg QHS starting 12/29/16; change evening OxyCR to PRN starting 12/30/16 continue OxyIR 5 - 15 mg Q 3 hr PRN. Change AM OxyCR to 10 mg starting 01/01/17. D/C'd cyclobenzaprine 10 mg t.i.d. D/C'd diazepam 12/28/16; no withdrawal symptoms noted. Consider trial of gabapentin. * Urinary retention & BPH. Jefferson catheter was placed 12/24/16. No lower urinary tract symptoms in the past. Discontinued cyclobenzaprine and tapered opiates. Jefferson disconttinued and normal voiding today 12/31/16 with PVR 56. * Lumbar spinal foraminal stenosis. He will consider having elective surgery in the future after he has recovered from his current condition. * Asthma has been well controlled. Continue his current medications. * Rheumatoid arthritis has been well controlled,. Continue his current medications. Plan for discharge home 01/05/17. Sons alternating weeks from out of town to assist. 12/31/16 17:12 Subjective: No complaints. Abstained from opiates this mooning; took OxyCR 10 mg last night. Slept well. Currently pain is 2 - 3 /10. Jefferson d/c'd this AM and has urinated since X 1. Objective: Vital Signs Temp Pulse Resp BP Pulse Ox 36.8 C 74 16 124/71 H 92 12/30/16 19:28 12/30/16 19:28 12/30/16 19:28 12/30/16 19:28 12/30/16 19:28 12/30/16 12/31/16 01/01/17 05:59 05:59 05:59 Intake Total 1754 1120 Output Total 850 1800 Balance 904 -680 Physical Exam - Physical Exam General Appearance: WD/WN, alert, no apparent distress Respiratory: No respiratory distress, No accessory muscle use Skin: normal color, warm/dry Neuro/Psych: no motor/sensory deficits, alert, normal mood/affect, oriented x 3 ICD10 Worksheet Patient Problems: Problems Problem Status Onset Leg weakness Acute
[2016-12-31] MEDS: oxyCODONE CR 15 MG TAB PO SCH (11:53)
[2016-12-31] MEDS: TAMSULOSIN HCL 0.4 MG CAP PO SCH (20:06)
[2016-12-31] MEDS: VALSARTAN 40 MG TAB PO SCH (20:07)
[2016-12-31] MEDS: PATCH REMOVAL 1 EA PATCH TD SCH (20:11)
[2017-01-01] MEDS: LIDOCAINE 5% 1 EA PATCH TD SCH (08:05)
[2017-01-01] MEDS: HYDROXYCHLOROQUINE SULFATE 200 MG TAB PO SCH (08:06)
[2017-01-01] MEDS: predniSONE 5 MG TAB PO SCH (08:06)
[2017-01-01] MEDS: SENNOSIDES/DOCUSATE SODIUM TAB PO SCH ×2 (08:06→20:20)
[2017-01-01] MEDS: MULTIVITAMINS 1 EACH TAB PO SCH (08:06)
[2017-01-01] MEDS: ATORVASTATIN CALCIUM 10 MG TAB PO SCH (08:06)
[2017-01-01] MEDS: ENOXAPARIN 40 MG/0.4 ML SYR SC SCH (08:07)
[2017-01-01] MEDS: FLUTICASONE/SALMETER 250/50MCG DISKUS IH SCH ×2 (08:08→20:19)
--- NOTE | 2017-01-01 09:38 | SOAPPROG ---
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 Initial FIM 90; increase to 107 as of 01/01/17 I in room, S for stairs, mod I for ADLs except S for shower T' pedrito and bathing. Decreased strength and proprioception RLE. Needs cues for spinal precautions. Continue Physical and occupational therapy to optimize his mobility and activities of daily living. * Lumbar back pain, much improved. Using opiates sparingly. * Urinary retention & BPH. Jefferson catheter was placed 12/24/16. No lower urinary tract symptoms in the past. Discontinued cyclobenzaprine and tapered opiates. Jefferson discontinued and normal voiding subsequently. * Lumbar spinal foraminal stenosis. He will consider having elective surgery in the future after he has recovered from his current condition. * Asthma has been well controlled. Continue his current medications. * Rheumatoid arthritis has been well controlled,. Continue his current medications. Attended staffing, 15 min. D/W case mgmt, nursing, PT, OT. Home visit today and will sleep on basement level with outside access and bathroom, Family acquiring DME. Plan for discharge home 01/04/17. Follow-up Dr. Morales 01/04/17. 01/01/17 14:51 Subjective: No complaints. Skipped OxyCR yesterday evening. Was up 2 - 3 x to urinate, which is his usual habit. Took OxyCr this morning to prepare for car trip and activities of the day: had home visit with PT. Objective: Vital Signs Temp Pulse Resp BP Pulse Ox 36.7 C 78 17 125/75 H 92 12/31/16 18:28 12/31/16 18:28 12/31/16 18:28 12/31/16 20:07 12/31/16 18:28 12/31/16 01/01/17 01/02/17 05:59 05:59 05:59 Intake Total 1120 730 Output Total 1800 650 Balance -680 80 - Time Spent With Patient Time Spent With Patient: Greater than 35 minutes floor time today, including more than 50% of time in coordination of care during staffing meeting, and counseling patient. Physical Exam - Physical Exam General Appearance: WD/WN, alert, no apparent distress Respiratory: No respiratory distress, No accessory muscle use Cardiac/Chest: No edema Skin: normal color, warm/dry Neuro/Psych: no motor/sensory deficits, alert, normal mood/affect, oriented x 3 ICD10 Worksheet Patient Problems: Problems Problem Status Onset Leg weakness Acute
[2017-01-01] MEDS: VALSARTAN 40 MG TAB PO SCH (20:18)
[2017-01-01] MEDS: ACETAMINOPHEN 325 MG TAB PO PRN (20:19)
[2017-01-01] MEDS: TAMSULOSIN HCL 0.4 MG CAP PO SCH (20:20)
[2017-01-01] MEDS: PATCH REMOVAL 1 EA PATCH TD SCH (20:21)
[2017-01-02] MEDS: ACETAMINOPHEN 325 MG TAB PO PRN ×2 (06:30→20:47)
[2017-01-02] MEDS: LIDOCAINE 5% 1 EA PATCH TD SCH (09:02)
[2017-01-02] MEDS: ATORVASTATIN CALCIUM 10 MG TAB PO SCH (09:03)
[2017-01-02] MEDS: SENNOSIDES/DOCUSATE SODIUM TAB PO SCH ×2 (09:03→20:48)
[2017-01-02] MEDS: FLUTICASONE/SALMETER 250/50MCG DISKUS IH SCH ×2 (09:03→20:49)
[2017-01-02] MEDS: HYDROXYCHLOROQUINE SULFATE 200 MG TAB PO SCH (09:04)
[2017-01-02] MEDS: MULTIVITAMINS 1 EACH TAB PO SCH (09:04)
[2017-01-02] MEDS: predniSONE 5 MG TAB PO SCH (09:04)
[2017-01-02] MEDS ORDERED: oxyCODONE IR 5 MG TAB PO PRN (09:06)
--- NOTE | 2017-01-02 11:41 | SOAPPROG ---
SOAP Progress Note Assessment/Plan: Assessment: 66-year-old male status post T11 T12 decompression laminectomy for non- traumatic spinal cord dysfunction Today's update patient has relatively low post void residuals, no incontinence , regular bowel program. Noticing improving strength, coordination, but ongoing impaired proprioception. Functionally making great improvements. Continue rehab plan below. 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 Initial FIM 90; increase to 107 as of 01/01/17 I in room, S for stairs, mod I for ADLs except S for shower T' pedrito and bathing. Decreased strength and proprioception RLE. Needs cues for spinal precautions. Continue Physical and occupational therapy to optimize his mobility and activities of daily living. * Lumbar back pain, much improved. Using opiates sparingly. * Urinary retention & BPH. Jefferson catheter was placed 12/24/16. No lower urinary tract symptoms in the past. Discontinued cyclobenzaprine and tapered opiates. Jefferson discontinued and normal voiding subsequently. * Lumbar spinal foraminal stenosis. He will consider having elective surgery in the future after he has recovered from his current condition. * Asthma has been well controlled. Continue his current medications. * Rheumatoid arthritis has been well controlled,. Continue his current medications. Plan for discharge home 01/04/17. Follow-up Dr. Morales 01/04/17. 01/02/17 11:38 Subjective: CC: functional improvements no acute events overnight. Patient endorses that he is voiding well, having regular bowel movements, no issues. Post-Roderick residuals have been less than 200 and improving. Seen with patients son in the room who was a neurology resident, answered questions regarding prognosis and recovery pattern. Patient reports improving strength, participating well and therapies. No concerns from staff. Patient denies any new numbness, tingling, or weakness. Objective: Vital Signs Temp Pulse Resp BP Pulse Ox 36.8 C 69 14 132/84 H 96 01/02/17 08:00 01/02/17 08:00 01/02/17 08:00 01/02/17 08:00 01/02/17 08:00 01/01/17 01/02/17 01/03/17 05:59 05:59 05:59 Intake Total 730 956 360 Output Total 650 476 Balance 80 480 360 Physical Exam - Physical Exam General Appearance: WD/WN, alert, no apparent distress Respiratory: lungs clear, normal breath sounds, No respiratory distress, No accessory muscle use, No decreased breath sounds, No crackles, No rhonchi, No wheezing Abdomen: normal bowel sounds, non-tender, soft Skin: normal color, warm/dry, No cyanosis, No diaphoresis Extremities: No pedal edema, No swelling Neuro/Psych: alert, normal mood/affect ( Strength 5/5 in the bilateral knee extensors and ankle dorsiflexors. Sensation decreased to light touch on the right compared to the left. Patient endorses decreased temperature sensation on the left.), other ( Observed ambulating with standby assistance in the hallway with two trekking poles, swing through gait bilaterally, stable) ICD10 Worksheet Patient Problems: Problems Problem Status Onset Leg weakness Acute
[2017-01-02] MEDS: VALSARTAN 40 MG TAB PO SCH (20:46)
[2017-01-02] MEDS: TAMSULOSIN HCL 0.4 MG CAP PO SCH (20:48)
[2017-01-02] MEDS: PATCH REMOVAL 1 EA PATCH TD SCH (20:49)
[2017-01-03] MEDS: ZOLPIDEM TARTRATE 5 MG TAB PO PRN (01:10)
[2017-01-03] MEDS: FLUTICASONE/SALMETER 250/50MCG DISKUS IH SCH ×2 (08:15→22:45)
[2017-01-03] MEDS: HYDROXYCHLOROQUINE SULFATE 200 MG TAB PO SCH (08:16)
[2017-01-03] MEDS: MULTIVITAMINS 1 EACH TAB PO SCH (08:16)
[2017-01-03] MEDS: LIDOCAINE 5% 1 EA PATCH TD SCH (08:16)
[2017-01-03] MEDS: predniSONE 5 MG TAB PO SCH (08:16)
[2017-01-03] MEDS: ACETAMINOPHEN 325 MG TAB PO PRN ×2 (08:17→20:12)
[2017-01-03] MEDS: SENNOSIDES/DOCUSATE SODIUM TAB PO SCH ×2 (08:17→20:13)
--- NOTE | 2017-01-03 10:19 | SOAPPROG ---
SOAP Progress Note Assessment/Plan: Assessment: 66-year-old male status post T11 T12 decompression laminectomy for non- traumatic spinal cord dysfunction Today's update Insomnia helped by Ambien, improving sensation and control of the right leg, improving strength. Working well with therapies. Continue plan below. 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 Initial FIM 90; increase to 107 as of 01/01/17 I in room, S for stairs, mod I for ADLs except S for shower T' pedrito and bathing. Decreased strength and proprioception RLE. Needs cues for spinal precautions. Continue Physical and occupational therapy to optimize his mobility and activities of daily living. * Lumbar back pain, much improved. Using opiates sparingly. * Urinary retention & BPH. Jefferson catheter was placed 12/24/16. No lower urinary tract symptoms in the past. Discontinued cyclobenzaprine and tapered opiates. Jefferson discontinued and normal voiding subsequently. * Lumbar spinal foraminal stenosis. He will consider having elective surgery in the future after he has recovered from his current condition. * Asthma has been well controlled. Continue his current medications. * Rheumatoid arthritis has been well controlled,. Continue his current medications. Plan for discharge home 01/04/17. Follow-up Dr. Morales 01/04/17. 01/02/17 11:38 01/03/17 10:16 Subjective: CC: Neural recovery No acute events overnight. Patient endorsed that he had better sleep because he took an Ambien around 1 AM, this is standard for him at home. Otherwise he notes that his voting improving control and sensation of his right leg, improved proprioception. He is progressing towards using a trekking pole for ambulation. 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 Denies any new shortness of breath or chest pain, no numbness, tingling, or weakness that is new. Objective: Vital Signs Temp Pulse Resp BP Pulse Ox 36.8 C 66 16 112/73 93 01/03/17 06:06 01/03/17 06:06 01/03/17 06:06 01/03/17 06:06 01/03/17 06:06 01/02/17 01/03/17 01/04/17 05:59 05:59 05:59 Intake Total 956 1600 360 Output Total 476 Balance 480 1600 360 Physical Exam - Physical Exam General Appearance: WD/WN, alert, no apparent distress Respiratory: No respiratory distress, No accessory muscle use Cardiac/Chest: normal peripheral pulses, regular rate, rhythm, No edema Skin: normal color, warm/dry, No cyanosis Extremities: No pedal edema, No swelling Neuro/Psych: alert, normal mood/affect ( Decreased proprioception on the right toe compared to the left, both decreased compared to the thumb.) ICD10 Worksheet Patient Problems: Problems Problem Status Onset Leg weakness Acute
[2017-01-03] MEDS: ATORVASTATIN CALCIUM 10 MG TAB PO SCH (12:14)
[2017-01-03] MEDS: VALSARTAN 40 MG TAB PO SCH (20:12)
[2017-01-03] MEDS: TAMSULOSIN HCL 0.4 MG CAP PO SCH (20:13)
[2017-01-03] MEDS: PATCH REMOVAL 1 EA PATCH TD SCH (22:46)
[2017-01-04] MEDS: ZOLPIDEM TARTRATE 5 MG TAB PO PRN (01:22)
[2017-01-04] MEDS: ACETAMINOPHEN 325 MG TAB PO PRN (05:32)
[2017-01-04 05:43] VITALS: BP 129/78; PULSE 75; RESP 17; TEMP 98.1; O2SAT 97
[2017-01-04] MEDS: LIDOCAINE 5% 1 EA PATCH TD SCH (08:07)
[2017-01-04] MEDS: MULTIVITAMINS 1 EACH TAB PO SCH (08:08)
[2017-01-04] MEDS: ATORVASTATIN CALCIUM 10 MG TAB PO SCH (08:10)
[2017-01-04] MEDS: predniSONE 5 MG TAB PO SCH (08:10)
[2017-01-04] MEDS: HYDROXYCHLOROQUINE SULFATE 200 MG TAB PO SCH (08:10)
[2017-01-04] MEDS: FLUTICASONE/SALMETER 250/50MCG DISKUS IH SCH (08:12)
[2017-01-04] MEDS: SENNOSIDES/DOCUSATE SODIUM TAB PO SCH (08:12)
[2017-01-04] MEDS: METHOTREXATE 2.5 MG TAB PO SCH (08:14)
--- NOTE | 2017-01-04 12:55 | PDOREHIP ---
Admission [facility] - Admission - 3 Day Assessment Period Admission Date/Day 1: 12/24/16 Day 2: 12/25/16 Day 3: 12/26/16 Discharge [facility] - Discharge - 3 Day Assessment Period 2 Days Prior to Anticipated Discharge Date: 01/02/17 1 Day Prior to Anticipated Discharge Date: 01/03/17 Anticipated Discharge Date: 01/04/17 - Discharge Skin Conditions Unhealed Pressure Ulcer (1 or more/Stage 1 or >)-Discharge: 0. No
--- NOTE | 2017-01-04 14:13 | GDS ---
[f rep st] DISCHARGE SUMMARY ADMITTING DIAGNOSIS: Nontraumatic spinal cord injury at the T11-12 level status post T11-12 decompressive laminectomy. DISCHARGE DIAGNOSES: 1. Nontraumatic spinal cord injury at the T11-12 level status post T11-12 decompressive laminectomy. 2. Lumbar back pain. CONSULTATIONS: There were none. PROCEDURES: There were none. COMPLICATIONS: There were none. HISTORY AND HOSPITAL COURSE: The patient came for rehabilitation after hospitalization with leg weakness, which followed a massage. He was found to have a nontraumatic spinal cord injury at the T11-12 level. Imaging also revealed lumbar disease with foraminal stenosis. He underwent a decompressive laminectomy. He had improvement in his leg weakness, though he had the development and then continuation of lumbar back pain. He had steady improvement in his functional status with an initial functional independence measure of 90. This is consistent with assisted living level of function. He had an improvement to 107 as of 01/01/2017, which is consistent with independent living. He was made independent in his room. He required supervision for stairs and had modified independence for activities of daily living, except supervision for shower transfers and bathing. There was decreased strength and proprioception of the right lower extremity, and he was needing cues for spinal precautions. He had urinary retention when he was initially admitted. Jefferson catheter had been removed on the day of discharge from the hospital and was replaced after admission when he was noted to be unable to urinate and had a high postvoid residual. He was taking cyclobenzaprine as part of his discharge medications, and this was discontinued due to its affect on bladder emptying with urinary retention as a side effect. He was begun on tamsulosin 0.4 mg. He was on opiates for pain control, and over several days, the dose of opiates was reduced until in the last several days before he left, he was using only occasional oxycodone continuous release 10 mg in the morning. With the cyclobenzaprine discontinued, the tamsulosin introduced, and a great decrease in his opiate use, he had successful voiding trial on 12/31/2016. There were no labs or studies done during his stay. CONDITION UPON DISCHARGE: Good. ACTIVITY: Ad collin, but no driving as long as he is using opiate medications, and no driving until he is cleared by Neurosurgery regarding his spinal precautions. DIET: Regular. FOLLOWUP: Date of next appointment: He is to follow up with Neurosurgeon, Dr. Morales, on 01/04/2017. He is to follow up with neurologist, Dr. Kerns, on 2016, and he will follow up on an as-needed basis with his primary care provider , Dr. Draper. MEDICATIONS AT DISCHARGE: 1. Fluticasone/salmeterol 250/50 mcg 1 puff b.i.d. 2. Oxycodone continuous release 10 mg b.i.d. p.r.n. 3. Tamsulosin 0.4 mg p.o. q.h.s. 4. Valsartan 80 mg p.o. q.h.s. 5. Aspirin 325 mg p.o. daily p.r.n. 6. Multivitamin 1 p.o. daily. 7. Acetaminophen 650 mg p.o. q.4 hours p.r.n. 8. Polyethylene glycol 17 g p.o. daily p.r.n. 9. Senna/docusate 1-2 p.o. b.i.d. 10. Celecoxib 200 mg p.o. b.i.d. 11. Hydroxychloroquine 200 mg p.o. daily. 12. Lidocaine patch to lumbar spine daily. 13. Methotrexate 2.5 mg p.o. q.10 days. 14. Oxycodone immediate release 5-10 mg q.4 hours p.r.n. 15. Prednisone 2.5 mg p.o. daily. 16. Simvastatin 20 mg p.o. q.h.s. ISSUES TO BE ADDRESSED AT FOLLOWUP: 1. Pain control and functional mobility. He will see Dr. Morales regarding spinal precautions and can discuss his pain conditions at that time. 2. Asthma and rheumatoid arthritis were stable and asymptomatic throughout his stay, and he can follow up with Dr. Draper. 3. Lumbar spinal disease. He will see Dr. Kerns, and he will consider surgery in the future per Dr. Morales. /[id number]/MODL MTDD
== END 2017-01-04 09:40 | disposition home or self-care (01) | DRG 950 ==
LOC: BREH 15:00
PROVIDERS: ADMIT Internal Medicine; ATTEND Internal Medicine
PROC: F0636ZZ Communicative/Cognitive Integration Skills Treatment of Neurological System - Whole Body (ICD-10-PCS; principal; 2016-12-24)
PROC: F08Z7ZZ Vocational Activities and Functional Community or Work Reintegration Skills Treatment (ICD-10-PCS; principal; 2016-12-24)
PROC: F07M3ZZ Motor Function Treatment of Musculoskeletal System - Whole Body (ICD-10-PCS; principal; 2016-12-24)
DX: Z48.811 Encounter for surgical aftercare following surgery on the nervous system (principal); M06.9 Rheumatoid arthritis, unspecified; J45.909 Unspecified asthma, uncomplicated; I10 Essential (primary) hypertension; R53.1 Weakness; M48.06 Spinal stenosis, lumbar region; N40.1 Benign prostatic hyperplasia with lower urinary tract symptoms; R33.9 Retention of urine, unspecified
CPT/HCPCS: 97110-GO; 97110-GP; 97112-GP; 97116-GP; 97162-GP; 97166-GO; 97530-GO; 97530-GP; 97535-GO; 97537-GO; J1650

== ENCOUNTER → 2018-03-02 | Outpatient (CLI) | payer OTHER | LOC: BMCIMAGING 07:28 | PROVIDERS: ATTEND Internal Medicine Rheumatology | DX: M05.89 Other rheumatoid arthritis with rheumatoid factor of multiple sites (principal); S92.321K Displaced fracture of second metatarsal bone, right foot, subsequent encounter for fracture with nonunion ==

== ENCOUNTER 2018-04-03 20:42 | Emergency (ER) | payer OTHER ==
--- NOTE | 2018-04-03 21:02 | EDPHY ---
H & P Stated Complaint: walked into glass josé miguel , skin tears to bilateral hands, abrasion to forhead Time Seen by Provider: 04/03/18 21:02 - Personal History Current Tetanus Diphtheria and Acellular Pertussis (TDAP): No Tetanus Vaccine Date: 03/08 - Medical/Surgical History Hx Asthma: Yes Hx Chronic Respiratory Disease: No Hx Diabetes: No Hx Cardiac Disease: No Hx Renal Disease: No Hx Cirrhosis: No Hx Alcoholism: No Hx HIV/AIDS: No Hx Splenectomy or Spleen Trauma: No Other PMH: RA. osteo arthritis. Hypertension. rt total knee [id number]. 2017 June acute right hemocompression t 11 t 12 laminectomy and steroid injection L5 and S1 asthma - Social History Smoking Status: Never smoked Constitutional: Initial Vital Signs Temperature (C) 36.9 C 04/03/18 20:49 Heart Rate 75 04/03/18 20:49 Respiratory Rate 16 04/03/18 20:49 Blood Pressure 146/88 H 04/03/18 20:49 O2 Sat (%) 95 04/03/18 20:49 O2 Delivery Mode Room Air Allergies/Adverse Reactions: No Known Allergies Allergy (Verified 12/17/16 18:05) Home Medications: Medication Instructions Recorded Silvia 04/03/18 Departure - Departure Referrals: Kar Draper MD [Primary Care Provider] - As per Instructions
--- NOTE | 2018-04-03 21:19 | EDPHY ---
General Time Seen by Provider: 04/03/18 21:02 Narrative: CHIEF COMPLAINT: Hit my head and hand abrasions HISTORY OF PRESENT ILLNESS: Patient presents by vehicle with complaints of head injury and hand abrasions. He states that he was walking in his home just prior to arrival. He was reading a file when he accidentally walked into a glass door. He states that he thought the door was open already but was not. He sustained a injury to the right eyebrow and abrasions to the back of both hands. Has no loss of consciousness or headache. No neck pain. No numbness or tingling. No weakness. No chest, back or abdominal pain. His concern is primarily for possible infections of the wounds of the hands. He has no visual disturbance. No vomiting. No difficulty ambulating. No use of anticoagulants. No other associated complaints or modifying factors. TIME OF INJURY: Less than 1 hr prior to arrival TETANUS STATUS: Up-to-date MEDICAL/SURGICAL/SOCIAL HISTORY: Rheumatoid arthritis, asthma, osteoarthritis, hypertension. Status post right total knee arthroplasty and laminectomy in steroid injections of L5 and S1. REVIEW OF SYSTEMS: Ten systems reviewed and are negative unless otherwise noted in the HPI EXAMINATION General Appearance: Alert, no distress Head: normocephalic. Superficial ecchymosis to the right eyebrow. No depression. No Christy sign. No raccoon eyes. No deformity Neck: Supple nontender. No crepitus or deformity. Midline trachea. Cardiovascular: Pulses normal throughout. Brisk cap refill Neurological: GCS 15. 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 No pronator drift. Normal [id number]. Strength is 5/ 5 in all 4 extremities. Skin: Warm and dry, no rash. Superficial abrasions to the dorsum of both hands consistent with skin tear. No puncture laceration. Extremities: Nontender, no pedal edema. Symmetric range of motion of all 4 extremities with painless range of motion of the hands. All compartments are soft the extremities. DIFFERENTIAL DIAGNOSES: Including but not limited to closed head injury, intracranial hemorrhage, skull fracture, concussion, skin tears, laceration, MDM: 9:05 p.m. Superficial ecchymosis to the right eyebrow with superficial skin tears to the dorsum of both hands. There is no evidence of intracranial abnormality by history, exam or [place] CT head rules. he does not take any anticoagulants. He is well-appearing within normal neuro examination. The superficial skin tears to the back both hands will here abraded and dressed by standard skin tear protocol. We discussed wound care. We discussed head injury precautions. We discussed follow up primary care physician. I have answered all his questions. He is conversing in full sentences, well-appearing and discharged home stable condition. SUPERVISION: This patient was independently evaluated without direct involvement of or examination by the attending physician. ED Precautions: Worsening pain. Erythema, edema, cyanosis, pallor, paresthesia or anesthesia. - History Smoking Status: Never smoked - Objective Vital Signs: Initial Vital Signs Temperature (C) 98.4 F 04/03/18 20:49 Heart Rate 75 04/03/18 20:49 Respiratory Rate 16 04/03/18 20:49 Blood Pressure 146/88 H 04/03/18 20:49 O2 Sat (%) 95 04/03/18 20:49 O2 Delivery Mode Room Air Allergies/Adverse Reactions: No Known Allergies Allergy (Verified 12/17/16 18:05) Home Medications: Medication Instructions Recorded Silvia 04/03/18 Departure - Departure Disposition: Home, Routine, Self-Care Clinical Impression: Contusion of forehead Qualifiers: Encounter type: initial encounter Qualified Code(s): S00.83XA - Contusion of other part of head, initial encounter Skin tear of left hand without complication Qualifiers: Encounter type: initial encounter Qualified Code(s): S61.412A - Laceration without foreign body of left hand, initial encounter Skin tear of right hand without complication Qualifiers: Encounter type: initial encounter Qualified Code(s): S61.411A - Laceration without foreign body of right hand, initial encounter Closed head injury Qualifiers: Encounter type: initial encounter Qualified Code(s): S09.90XA - Unspecified injury of head, initial encounter Condition: Good Instructions: Head Injury (ED), Skin Tear (ED) Additional Instructions: 1. Daily wound care to the hands as provided in discharge information 2. Ice to the right forehead as needed 3. Return to emergency department for headache, vomiting, visual disturbance, neck pain or stiffness, fever, difficulty ambulating, altered mentation Referrals: Kar Draper MD [Primary Care Provider] - As per Instructions
[2018-04-03 21:59] VITALS: BP 134/95
== END 2018-04-03 21:56 | disposition home or self-care (01) ==
DX: S00.83XA Contusion of other part of head, initial encounter (principal); S61.412A Laceration without foreign body of left hand, initial encounter; S61.411A Laceration without foreign body of right hand, initial encounter; S09.90XA Unspecified injury of head, initial encounter; W22.8XXA Striking against or struck by other objects, initial encounter; Y92.009 Unspecified place in unspecified non-institutional (private) residence as the place of occurrence of the external cause; Y93.9 Activity, unspecified; Y99.9 Unspecified external cause status

== ENCOUNTER 2018-04-04 18:10 | Emergency (ER) | payer OTHER ==
[2018-04-04 18:14] VITALS: BP 148/87
--- NOTE | 2018-04-04 18:38 | EDPHY ---
H & P Stated Complaint: here yest. for fall dizzy Time Seen by Provider: 04/04/18 18:25 HPI/ROS: CHIEF COMPLAINT: Head injury, headache HISTORY OF PRESENT ILLNESS: 67-year-old male presents after head injury with a headache and cognitive changes. Yesterday he accidentally walked into a glass door and hit his head. He did not have a headache yesterday. However today, onset of moderate headache, associated with difficulty concentrating and occasional difficulty with finding the right word while speaking. REVIEW OF SYSTEMS: complete 10 point ROS reviewed and is negative except for the noted elements in the HPI - Personal History Current Tetanus/Diphtheria Vaccine: Unsure Current Tetanus Diphtheria and Acellular Pertussis (TDAP): Unsure Tetanus Vaccine Date: 03/08 - Medical/Surgical History Hx Asthma: Yes Hx Chronic Respiratory Disease: No Hx Diabetes: No Hx Cardiac Disease: No Hx Renal Disease: No Hx Cirrhosis: No Hx Alcoholism: No Hx HIV/AIDS: No Hx Splenectomy or Spleen Trauma: No Other PMH: RA. osteo arthritis. Hypertension. rt total knee [id number]. 2017 June acute right hemocompression t 11 t 12 laminectomy and steroid injection L5 and S1 asthma - Social History Smoking Status: Never smoked Alcohol Use: Sober - Physical Exam Exam: General Appearance: Alert, pleasant and talkative Eyes: Right periorbital ecchymosis, pupils equal and round, no conjunctival pallor or injection ENT, Mouth: Mucous membranes moist, no facial meena tenderness Neck: Normal inspection, mild paraspinous tenderness, no pain with range of motion Respiratory: Lungs are clear to auscultation Cardiovascular: Regular rate and rhythm Gastrointestinal: Abdomen is soft and nontender Neurological: Alert, oriented x3, cranial nerves II through XII intact, motor 5 /5, sensory intact to light touch, normal gait Skin: Warm and dry Extremities: bandages on bilateral upper extremities Psychiatric: Mood and affect normal Constitutional: Initial Vital Signs Temperature (C) 36.7 C 04/04/18 18:12 Heart Rate 78 04/04/18 18:12 Respiratory Rate 16 04/04/18 18:12 Blood Pressure 148/87 H 04/04/18 18:12 O2 Sat (%) 94 04/04/18 18:12 O2 Delivery Mode Room Air Allergies/Adverse Reactions: No Known Allergies Allergy (Verified 12/17/16 18:05) Home Medications: Medication Instructions Recorded Silvia 04/03/18 Medical Decision Making - Diagnostics Imaging Results: CT head: air fluid level left maxillary sinus, o/w NAD Imaging: Discussed imaging studies w/ will call clerk Radiologist ED Course/Re-evaluation: This pt presents with a a moderate OCONNELL and cognitive changes 24hr after CHI. Neurologic exam is normal. Will obtain CT head. CT results d/w pt. Concussion instructions given. f/u PCP. Differential Diagnosis: includes though not limited to ICH, skull/facial fx, cervical spine fx Departure - Departure Disposition: Home, Routine, Self-Care Clinical Impression: Concussion Qualifiers: Encounter type: initial encounter Loss of consciousness presence/duration: without LOC Qualified Code(s): S06.0X0A - Concussion without loss of consciousness, initial encounter Condition: Good Instructions: Concussion (ED) Additional Instructions: 1. Cognitive rest while symptomatic. Limit screen time (phone, TV, computer) until symptoms resolve. 2. Limit physical activities that could lead to head injury until symptoms have completely resolved. Wear a helmet when skiing and biking. 3. Use Tylenol and ibuprofen as directed on the packaging as needed for pain for the next few days. 4. Follow up with your primary care provider and/or head injury specialist if you have persisting symptoms for more than 10 days. 5. Return to the ED for severe headache, weakness or numbness on one side of your body, or other worsening of condition. Referrals: Kar Draper MD [Primary Care Provider] - As per Instructions
== END 2018-04-04 19:08 | disposition home or self-care (01) ==
DX: S06.0X0A Concussion without loss of consciousness, initial encounter (principal); W22.8XXD Striking against or struck by other objects, subsequent encounter; Y99.8 Other external cause status

== ENCOUNTER 2018-04-06 19:58 | Emergency (ER) | payer OTHER ==
[2018-04-06 20:04] VITALS: BP 154/85
--- NOTE | 2018-04-06 20:22 | EDPHY ---
H & P Smoking Status: Never smoked Time Seen by Provider: 04/06/18 20:13 HPI/ROS: CHIEF COMPLAINT: Wound check HISTORY OF PRESENT ILLNESS: Patient is here for a wound check of a skin tear to the left forearm. Steri-Strips were placed few days ago was told to follow up to a sure the wound is healing well. He was very concerned about the skin flap remaining viable and not becoming infected. Denies any fever or pain or drainage from the area. ROS As detailed in HPI (Jhoan Shoemaker) Physical Exam: General: Alert and oriented. Nontoxic appearing. No acute distress HEENT: Pupils PERRLA. No oral lesions. Cardiopulmonary: Regular rate and rhythm. No lower extremity edema Skin: [place] warm and dry. Steri-Strips were removed and the skin flap was found to be healing quite well and well approximated. There is no evidence of wound dehiscence or infection. Muscle skeletal: Moving all 4 extremities. Equal strength in upper extremities and lower extremities. Ambulatory. (Jhoan Shoemaker) Constitutional: Initial Vital Signs Temperature (C) 36.8 C 04/06/18 20:02 Heart Rate 74 04/06/18 20:02 Respiratory Rate 18 04/06/18 20:02 Blood Pressure 154/85 H 04/06/18 20:02 O2 Sat (%) 95 04/06/18 20:02 O2 Delivery Mode Room Air Allergies/Adverse Reactions: No Known Allergies Allergy (Verified 04/06/18 20:04) Home Medications: Medication Instructions Recorded Voltareyue 04/03/18 Medical Decision Making ED Course/Re-evaluation: 67-year-old male here for wound check. The wound does appear to be healing quite well with use Steri-Strips. We reapplied Steri-Strips and will have him keep him on until they fall off which time the skin flap should be well attached to the underlying skin layer. We discussed indications for return including any signs of infection (Jhoan Shoemaker) This patient was evaluated and managed by the physician administrative assistant data entry. I have reviewed the documentation and agree with the plan of care. I am the secondary supervising physician. (Krissy Martin) Departure - Departure Disposition: Home, Routine, Self-Care Clinical Impression: Visit for wound check Condition: Good Instructions: Steristrips (ED) Additional Instructions: Let the Steri-Strips fall off on their own. If he develops any signs of infection return to the ER. Referrals: Kar Draper MD [Primary Care Provider] - As per Instructions
== END 2018-04-06 20:30 | disposition home or self-care (01) ==
DX: S51.812D Laceration without foreign body of left forearm, subsequent encounter (principal); X58.XXXD Exposure to other specified factors, subsequent encounter; Y92.9 Unspecified place or not applicable